=== PATIENT | female | born 1945 | race American Indian/Alaskan Native ===

== ENCOUNTER 2017-03-21 13:35 | Inpatient (IN) | payer MEDICARE ==
[2017-03-21] MEDS ORDERED: PROVENTIL IH ONE (15:21)
[2017-03-21] MEDS ORDERED: MAGNESIUM SULFATE 2GM/50ML 2 GM/50 ML BAG IV ONE (15:21)
[2017-03-21] MEDS ORDERED: ATROVENT IH ONE (15:22)
--- NOTE | 2017-03-21 15:25 | Emergency Department Report ---
Chief Complaint: Adult Asthma Stated Complaint: COUGHING Time Seen by Provider: 03/21/17 15:21 - HPI History of Present Illness: pt c/o wheezing for 1 week. PT states she was seen at PCP office last week and today but no improvement with medications. - ROS Review of Systems: + wheezing + cough + congestion - Exam Vital Signs: Vital Signs 03/21/17 15:13 Temperature 98.1 F Pulse Rate 78 Respiratory 24 Rate Blood Pressure 147/91 O2 Sat by Pulse 100 Oximetry Physical Exam: PT looks well, non toxic mild tachypnea noted but no acute distress pt with insp/ exp wheeze srikanth, ant and post MSE screening note: Focused history and physical exam performed. Due to findings the following was ordered: labs, xr, neb, meds ED Disposition for MSE Condition: Stable
[2017-03-21 15:55] LABS: Basophils % (Auto) 0.8 % (0.0-1.8); Eosinophils % (Auto) 1.2 % (0.0-4.3); Hematocrit 39.9 % (30.3-42.9); Hemoglobin 12.8 gm/dl (10.1-14.3); Mean Corpuscular HGB Conc 32 % (30-34); Mean Corpuscular Hemoglobin 28 pg (28-32); Mean Corpuscular Volume 88 fl (79-97); Platelet Count 267 K/mm3 (140-440); Red Blood Count 4.55 M/mm3 (3.65-5.03); Red Cell Distribution Width 12.8 % (13.2-15.2); White Blood Count 6.5 K/mm3 (4.5-11.0)
[2017-03-21 16:01] LABS: Alanine Aminotransferase 22 units/L (7-56); Albumin 3.9 g/dL (3.9-5); Alkaline Phosphatase 115 units/L (35-129); Anion Gap 17 mmol/L; Bilirubin,Total 0.3 mg/dL (0.1-1.2); Blood Urea Nitrogen 14 mg/dL (7-17); Calcium 9.6 mg/dL (8.4-10.2); Carbon Dioxide 26 mmol/L (22-30); Chloride 96.9 mmol/L (98-107); Glucose 104 mg/dL (65-100); Potassium 4.2 mmol/L (3.6-5.0); Sodium 136 mmol/L (137-145)
[2017-03-21 16:07] LABS: Total Protein 7.9 g/dL (6.3-8.2)
--- NOTE | 2017-03-21 16:37 | XRay Report ---
ROUTINE CHEST, TWO VIEWS: Asthma, SOB. PA and lateral views demonstrate the heart and mediastinal contour to be of normal size and shape. The lungs are clear and fully expanded and the soft tissues and bony structures are normal. IMPRESSION: Normal study.
[2017-03-21] MEDS ORDERED: TESSALON PERLES PO ONE (17:05)
--- NOTE | 2017-03-21 17:06 | Emergency Department Report ---
ED Shortness of Breath HPI - General Chief Complaint: Adult Asthma Stated Complaint: COUGHING Time Seen by Provider: 03/21/17 16:50 Source: patient Mode of arrival: Ambulatory Limitations: No Limitations - History of Present Illness Initial Comments: 71-year-old female with a past medical history of asthma, hypertension, and elevated cholesterol presents to the hospital complains of asthma exacerbation. Patient's experience shortness of breath and wheezing episodes 1 week. Positive cough productive of thick clear sputum. She complains of chest pain with coughing only that is rated 2/10 in intensity. No complaints of fever, calf tenderness, edema, fever. Patient was seen by her PMD this AMand was sent to the ED for treatment - Related Data Home Medications Medication Instructions Recorded Confirmed Last Taken Albuterol Sulfate [Ventolin HFA] 2 puff IH Q4H PRN 05/31/14 05/31/14 05/30/14 Aspirin EC [Halfprin EC] 81 mg PO QDAY 05/31/14 05/31/14 05/30/14 Baclofen [Lioresal] 10 mg PO BID 05/31/14 05/31/14 05/30/14 Estrogens, Conjugated [Premarin] 0.625 mg PO QDAY 05/31/14 05/31/14 05/30/14 Loratadine [Claritin] 10 mg PO DAILY 05/31/14 05/31/14 05/30/14 Montelukast [Singulair] 10 mg PO QPM 05/31/14 05/31/14 05/30/14 Polyethylene Glycol 3350 [Gavilax] 8.5 gm PO DAILY 05/31/14 05/31/14 05/30/14 Simvastatin 20 mg PO QDAY 05/31/14 05/31/14 05/30/14 Triamter/Hctz 37.5-25 mg 1 tab PO QDAY 05/31/14 05/31/14 05/30/14 [Maxzide-25] Previous Rx's Medication Instructions Recorded Last Taken Type Doxycycline [Vibramycin CAP] 100 mg PO Q12HR #20 capsule 08/15/15 Unknown Rx Cyclobenzaprine [Flexeril] 10 mg PO TID PRN #20 tablet 11/08/15 Unknown Rx Ibuprofen [Motrin 800 MG tab] 800 mg PO Q8HR PRN #20 tablet 11/08/15 Unknown Rx Meloxicam [Mobic] 7.5 mg PO QDAY #30 tablet 01/13/16 Unknown Rx ALBUTEROL Inhaler [ProAir HFA 2 puff IH QID PRN #1 inhalation 01/18/16 Unknown Rx Inhaler] Benzonatate [Tessalon Perles] 100 mg PO Q8HR PRN #20 capsule 01/18/16 Unknown Rx predniSONE [Deltasone] 20 mg PO BID #10 tablet 01/18/16 Unknown Rx Sulfamethoxazole/Trimethoprim 1 each PO BID #14 tablet 07/31/16 Unknown Rx [Bactrim DS TAB] Allergies Allergy/AdvReac Type Severity Reaction Status Date / Time acetaminophen [From Vicodin] Allergy Itching Verified 01/18/16 08:23 hydrocodone bitartrate Allergy Itching Verified 01/18/16 08:23 [From Vicodin] ED Review of Systems ROS: Stated complaint: COUGHING Other details as noted in HPI Comment: All other systems reviewed and negative Other: Constitutional: No fevers chills Eyes: No eye pain visual changes ENT: No ear pain or throat pain Neck: Denies pain Respiratory: As per HPI Cardiovascular: As per HPI GI: Denies abdominal pain, nausea, vomiting, diarrhea : Denies dysuria Musculoskeletal: Denies back pain Skin: Denies rash, lesions, erythema Neurologic: Denies headache, numbness, weakness Psychiatric: Denies suicidal ideation, hallucinations ED Past Medical Hx - Past Medical History Previous Medical History?: Yes Hx Hypertension: Yes Hx Asthma: Yes Additional medical history: HIGH CHOLESTEROL. CHRONIC BACK PAIN. GLAUCOMA - Surgical History Past Surgical History?: Yes Additional Surgical History: back, L knee surgery, hysterectomy - Social History Smoking Status: Never Smoker Substance Use Type: None - Medications Home Medications: Home Medications Medication Instructions Recorded Confirmed Last Taken Type Albuterol Sulfate [Ventolin HFA] 2 puff IH Q4H PRN 05/31/14 05/31/14 05/30/14 History Aspirin EC [Halfprin EC] 81 mg PO QDAY 05/31/14 05/31/14 05/30/14 History Baclofen [Lioresal] 10 mg PO BID 05/31/14 05/31/14 05/30/14 History Estrogens, Conjugated [Premarin] 0.625 mg PO QDAY 05/31/14 05/31/1414 History Loratadine [Claritin] 10 mg PO DAILY 05/31/14 05/31/14 05/30/14 History Montelukast [Singulair] 10 mg PO QPM 05/31/14 05/31/14 05/30/14 History Polyethylene Glycol 3350 [Gavilax] 8.5 gm PO DAILY 05/31/14 05/31/14 05/30/14 History Simvastatin 20 mg PO QDAY 05/31/14 05/31/14 05/30/14 History Triamter/Hctz 37.5-25 mg 1 tab PO QDAY 05/31/14 05/31/14 05/30/14 History [Maxzide-25] Doxycycline [Vibramycin CAP] 100 mg PO Q12HR #20 capsule 08/15/15 Unknown Rx Cyclobenzaprine [Flexeril] 10 mg PO TID PRN #20 tablet 11/08/15 Unknown Rx Ibuprofen [Motrin 800 MG tab] 800 mg PO Q8HR PRN #20 tablet 11/08/15 Unknown Rx Meloxicam [Mobic] 7.5 mg PO QDAY #30 tablet 01/13/16 Unknown Rx ALBUTEROL Inhaler [ProAir HFA 2 puff IH QID PRN #1 inhalation 01/18/16 Unknown Rx Inhaler] Benzonatate [Tessalon Perles] 100 mg PO Q8HR PRN #20 capsule 01/18/16 Unknown Rx predniSONE [Deltasone] 20 mg PO BID #10 tablet 01/18/16 Unknown Rx Sulfamethoxazole/Trimethoprim 1 each PO BID #14 tablet 07/31/16 Unknown Rx [Bactrim DS TAB] ED Physical Exam - General Limitations: No Limitations - Other Other exam information: General: No limitations, patient is alert in no acute distress Head exam: Atraumatic, normocephalic Eyes exam: Normal appearance, ENT: Moist mucous membrane, normal oropharynx Neck exam: Normal inspection, full range of motion, no meningismus nontender Respiratory exam: Diminished breath sounds bilaterally with end expiratory wheeze, mild tachypnea Cardiovascular: Normal rate and rhythm, normal heart sounds Abdomen: Soft, nondistended, and nontender, with normal bowel sounds, no rebound, or guarding Extremity: Full range of motion normal inspection no deformity Back: Normal Inspection, full range of motion, no tenderness Neurologic: Alert, oriented x3, cranial nerves intact, no motor or sensory deficit Psychiatric: normal affect, normal mood Skin: Warm, dry, intact ED Course Vital Signs 03/21/17 15:13 Temperature 98.1 F Pulse Rate 78 Respiratory 24 Rate Blood Pressure 147/91 O2 Sat by Pulse 100 Oximetry - Reevaluation(s) Reevaluation #1: 03/21/17 17:09 Patient received magnesium, Solu-Medrol, albuterol, and Atrovent in the ED with improvement ED Medical Decision Making - Lab Data Result diagrams: 03/21/17 15:25 03/21/17 15:25 Lab Results 03/21/17 03/21/17 Range/Units 15:25 15:25 WBC 6.5 (4.5-11.0) K/mm3 RBC 4.55 (3.65-5.03) M/mm3 Hgb 12.8 (10.1-14.3) gm/dl Hct 39.9 (30.3-42.9) % MCV 88 (79-97) fl MCH 28 (28-32) pg MCHC 32 (30-34) % RDW 12.8 L (13.2-15.2) % Plt Count 267 (140-440) K/mm3 Lymph % (Auto) 34.6 (13.4-35.0) % [place] % (Auto) 8.5 H (0.0-7.3) % Eos % (Auto) 1.2 (0.0-4.3) % Baso % (Auto) 0.8 (0.0-1.8) % Lymph # 2.2 (1.2-5.4) K/mm3 [place] # 0.6 (0.0-0.8) K/mm3 Eos # 0.1 (0.0-0.4) K/mm3 Baso # 0.1 (0.0-0.1) K/mm3 Seg Neutrophils % 54.9 (40.0-70.0) % Seg Neutrophils # 3.6 (1.8-7.7) K/mm3 Sodium 136 L (137-145) mmol/L Potassium 4.2 (3.6-5.0) mmol/L Chloride 96.9 L (98-107) mmol/L Carbon Dioxide 26 (22-30) mmol/L Anion Gap 17 mmol/L BUN 14 (7-17) mg/dL Creatinine 0.7 (0.7-1.2) mg/dL Estimated GFR > 60 ml/min BUN/Creatinine Ratio 20.00 % Glucose 104 H (65-100) mg/dL Calcium 9.6 (8.4-10.2) mg/dL Total Bilirubin 0.3 (0.1-1.2) mg/dL AST 29 (5-40) units/L ALT 22 (7-56) units/L Alkaline Phosphatase 115 (35-129) units/L Total Protein 7.9 (6.3-8.2) g/dL Albumin 3.9 (3.9-5) g/dL Albumin/Globulin Ratio 1.0 % - Radiology Data Radiology results: report reviewed (chest x-ray: No acute finding) - Medical Decision Making Patient is improving with ED treatment. Plan to admit to the hospital due to persistent symptoms for further achievement of acute asthma exacerbation. No infiltrate identified on chest x-ray. Patient also without fever or leukocytosis - Differential Diagnosis asthma, bronchitis, pneumonia, CHF Critical Care Time: No Critical care attestation.: If time is entered above; I have spent that time in minutes in the direct care of this critically ill patient, excluding procedure time. ED Disposition Clinical Impression: Acute asthma exacerbation Disposition: OP ADMITTED IP TO THIS HOSP Is pt being admited?: Yes Condition: Stable Time of Disposition: 17:06 (Dr Santana/hosp)
--- NOTE | 2017-03-21 17:16 | Admit Criteria Form ---
Admission Criteria Documentation: ASTHMA Clinical Indications for Admission to Inpatient Care (Place 'X' for any and all applicable criteria): Admission is indicated for ANY ONE of the following (1)(2)(3)(4)(5): [ ]I. Absent or markedly diminished breath sounds (silent chest) [ ]II. Oxygen saturation < 92% [ ]III. PaCO2 = / > 42 mm Hg (5.6 kPa) [ ]IV. Peak expiratory flow rate < 40% of predicted or personal best after treatment. [ ]V. Peak expiratory flow rate < 33% of predicted or personal before after treatment [ ]. Change in mental status [ ]VII. Ventilatory support required [ ]VIII. PaO2 < 60 mm Hg (8.0 kPa) [ ]IX. Cyanosis [ ]X. Cardiac dysrhythmia (e.g., bradycardia) [ ]XI. Hemodynamic instability [ ]XII. Radiographic evidence of complication requiring inpatient treatment (e.g., pneumonia, pneumothorax) [X]XIII. Inpatient admission required rather than observation care (also use Asthma: Observation Care guideline as appropriate) because of ANY ONE of the following: [X]a) Respiratory finding that is severe or persistent (eg, dyspnea, tachypnea, accessory muscle use) [ ]b) Airflow measurements less than 60% of predicted or personal best that persist (e.g., over 24 hours) or worsen despite treatments [ ]c) Supplemental oxygen or respiratory treatments for over 24 hours that are performable only in acute inpatient setting [ ]d) Other condition, treatment or monitoring requiring inpatient admission. Extended stay beyond goal length of stay may be needed for (26)(27)(28): [ ]a) Severe respiratory failure (23) (29) (30) [ ]b) Secondary causes and complications (25) [ ]c) Status asthmaticus [ ]d) Chronic obstructive asthma [ ]e) Older patients (29) [ ]f) Slow resolution [ ]g) Clinically significant exacerbation of comorbidities (eg, anastasia. heart failure, atrial fibrillation) The original [employer] content created by [employer] has been revised. The portions of the content which have been revised are identified through the use of italic text or in bold, and [employer] has neither reviewed nor approved the modified material. All other unmodified content is copyright [employer] Please see references footnoted in the original [facility] edition 2016 Admission Criteria Met: Yes
--- NOTE | 2017-03-21 17:29 | History and Physical Report ---
History of Present Illness Chief complaint: I keep coughing, and im short of breath History of present illness: 71 YO Female with HTN, Asthma, HLD, Chronic Lumbar Pain presents to ED for evaluation. Pt states that she has experienced shortness of breath, and nonproductive cough for the past week with worsening symptoms over the past 24 hours. Pt states that her nebulizers are not helping her. Pt denies fever, chills, CP, Palpitations, NVD, Syncope, Prolonged immobility/travel, Individual/ Family history of DVT/PE, productive cough, syncope, leg swelling, calf pain, or recent ill contacts. Past History Past Medical History: other (Asthma,HTN) Past Surgical History: hysterectomy, total knee replacement, Other (Back) Social history: . denies: smoking, alcohol abuse, prescription drug abuse Family history: diabetes, hypertension Medications and Allergies Allergies Allergy/AdvReac Type Severity Reaction Status Date / Time acetaminophen [From Vicodin] Allergy Itching Verified 01/18/16 08:23 hydrocodone bitartrate Allergy Itching Verified 01/18/16 08:23 [From Vicodin] Home Medications Medication Instructions Recorded Confirmed Last Taken Type Albuterol Sulfate [Ventolin HFA] 2 puff IH Q4H PRN 05/31/14 05/31/14 05/30/14 History Aspirin EC [Halfprin EC] 81 mg PO QDAY 05/31/14 05/31/14 05/30/14 History Baclofen [Lioresal] 10 mg PO BID 05/31/14 05/31/14 05/30/14 History Estrogens, Conjugated [Premarin] 0.625 mg PO QDAY 05/31/14 05/31/14 05/30/14 History Loratadine [Claritin] 10 mg PO DAILY 05/31/14 05/31/14 05/30/14 History Montelukast [Singulair] 10 mg PO QPM 05/31/14 05/31/14 05/30/14 History Polyethylene Glycol 3350 [Gavilax] 8.5 gm PO DAILY 05/31/14 05/31/14 05/30/14 History Simvastatin 20 mg PO QDAY 05/31/14 05/31/14 05/30/14 History Triamter/Hctz 37.5-25 mg 1 tab PO QDAY 05/31/14 05/31/14 05/30/14 History [Maxzide-25] Doxycycline [Vibramycin CAP] 100 mg PO Q12HR #20 capsule 08/15/15 Unknown Rx Cyclobenzaprine [Flexeril] 10 mg PO TID PRN #20 tablet 11/08/15 Unknown Rx Ibuprofen [Motrin 800 MG tab] 800 mg PO Q8HR PRN #20 tablet 11/08/15 Unknown Rx Meloxicam [Mobic] 7.5 mg PO QDAY #30 tablet 01/13/16 Unknown Rx ALBUTEROL Inhaler [ProAir HFA 2 puff IH QID PRN #1 inhalation 01/18/16 Unknown Rx Inhaler] Benzonatate [Tessalon Perles] 100 mg PO Q8HR PRN #20 capsule 01/18/16 Unknown Rx predniSONE [Deltasone] 20 mg PO BID #10 tablet 01/18/16 Unknown Rx Sulfamethoxazole/Trimethoprim 1 each PO BID #14 tablet 07/31/16 Unknown Rx [Bactrim DS TAB] Review of Systems All systems: negative Respiratory: cough, shortness of breath Exam - Constitutional Vitals: Temp Pulse Resp BP Pulse Ox 98.1 F 78 24 147/91 100 03/21/17 15:13 03/21/17 15:13 03/21/17 15:13 03/21/17 15:13 03/21/17 15:13 General appearance: Present: mild distress - EENT Eyes: Present: PERRL ENT: hearing intact, clear oral mucosa - Neck Neck: Present: supple, normal ROM - Respiratory Respiratory effort: normal Respiratory: bilateral: diminished, wheezing - Cardiovascular Heart Sounds: Present: S1 & S2. Absent: rub, click - Extremities Extremities: pulses symmetrical, No edema Peripheral Pulses: within normal limits - Abdominal General gastrointestinal: Present: soft, non-tender, non-distended, normal bowel sounds Female genitourinary: Present: normal - Integumentary Integumentary: Present: clear, warm, dry - Musculoskeletal Musculoskeletal: gait normal, strength equal bilaterally - Psychiatric Psychiatric: appropriate mood/affect, intact judgment & insight - Neurologic Neurologic: CNII-XII intact, moves all extremities Results - Labs CBC & Chem 7: 03/21/17 15:25 03/21/17 15:25 Labs: Abnormal lab results 04/26/17 04/26/17 Range/Units 15:25 15:25 RDW 12.8 L (13.2-15.2) % [place] % (Auto) 8.5 H (0.0-7.3) % Sodium 136 L (137-145) mmol/L Chloride 96.9 L (98-107) mmol/L Glucose 104 H (65-100) mg/dL Assessment and Plan - Patient Problems (1) Acute respiratory failure Current Visit: Yes Status: Acute Qualifiers: Respiratory failure complication: R Plan to address problem: Supplemental oxygen, nebs, aspiration precautions, incentive spirometry, supportive care. (2) Acute asthma exacerbation Current Visit: Yes Status: Acute Qualifiers: Asthma severity: A Plan to address problem: Steroids, nebs, aspiration precautions, supplemental oxygen, supportive care, IV abx, magnesium sulfate (3) Accelerated hypertension Current Visit: Yes Status: Acute Plan to address problem: Monitor BP q shift, (4) Obesity (BMI 30.0-34.9) Current Visit: Yes Status: Acute Plan to address problem: Pt counseled regarding incrased physical activity, and balanced diet (5) HLD (hyperlipidemia) Current Visit: Yes Status: Acute Qualifiers: Hyperlipidemia type: H Plan to address problem: Continue current therapy (6) DVT prophylaxis Current Visit: Yes Status: Acute
[2017-03-21] MEDS ORDERED: TYLENOL PO PRN (17:30)
[2017-03-21] MEDS ORDERED: DULCOLAX PR PRN (17:30)
[2017-03-21] MEDS ORDERED: DUONEB 0.5 MG-3 MG/3 ML SOLN IH PRN (17:30)
[2017-03-21] MEDS ORDERED: MILK OF MAGNESIA PO PRN (17:30)
[2017-03-21] MEDS ORDERED: ZOFRAN IV PRN (17:30)
[2017-03-21] MEDS ORDERED: PROVENTIL IH PRN (18:12)
[2017-03-21] MEDS ORDERED: ZITHROMAX 500 MG in NACL 0.9% 250ML 250 ML IV SCH (19:30)
[2017-03-21] MEDS: ZITHROMAX 500 MG in NACL 0.9% 250ML 250 ML IV SCH (22:30)
--- NOTE | 2017-03-22 09:56 | Progress Note ---
Hospitalist Physical - Constitutional Vitals: Temp Pulse Resp BP Pulse Ox 98.8 F 99 H 20 125/62 96 03/22/17 09:06 03/22/17 09:06 03/22/17 09:06 03/22/17 09:06 03/22/17 07:53 General appearance: Present: mild distress Results - Labs CBC & Chem 7: 03/21/17 15:25 03/21/17 15:25 Labs: Laboratory Last Values WBC 6.5 K/mm3 (4.5-11.0) 03/21/17 15:25 RBC 4.55 M/mm3 (3.65-5.03) 03/21/17 15:25 Hgb 12.8 gm/dl (10.1-14.3) 03/21/17 15:25 Hct 39.9 % (30.3-42.9) 03/21/17 15:25 MCV 88 fl (79-97) 03/21/17 15:25 MCH 28 pg (28-32) 03/21/17 15:25 MCHC 32 % (30-34) 03/21/17 15:25 RDW 12.8 % (13.2-15.2) L 03/21/17 15:25 Plt Count 267 K/mm3 (140-440) 03/21/17 15:25 Lymph % (Auto) 34.6 % (13.4-35.0) 03/21/17 15:25 [place] % (Auto) 8.5 % (0.0-7.3) H 03/21/17 15:25 Eos % (Auto) 1.2 % (0.0-4.3) 03/21/17 15:25 Baso % (Auto) 0.8 % (0.0-1.8) 03/21/17 15:25 Lymph # 2.2 K/mm3 (1.2-5.4) 03/21/17 15:25 [place] # 0.6 K/mm3 (0.0-0.8) 03/21/17 15:25 Eos # 0.1 K/mm3 (0.0-0.4) 03/21/17 15:25 Baso # 0.1 K/mm3 (0.0-0.1) 03/21/17 15:25 Seg Neutrophils % 54.9 % (40.0-70.0) 03/21/17 15:25 Seg Neutrophils # 3.6 K/mm3 (1.8-7.7) 03/21/17 15:25 Sodium 136 mmol/L (137-145) L 03/21/17 15:25 Potassium 4.2 mmol/L (3.6-5.0) 03/21/17 15:25 Chloride 96.9 mmol/L (98-107) L 03/21/17 15:25 Carbon Dioxide 26 mmol/L (22-30) 03/21/17 15:25 Anion Gap 17 mmol/L 03/21/17 15:25 BUN 14 mg/dL (7-17) 03/21/17 15:25 Creatinine 0.7 mg/dL (0.7-1.2) 03/21/17 15:25 Estimated GFR > 60 ml/min 03/21/17 15:25 BUN/Creatinine Ratio 20.00 % 03/21/17 15:25 Glucose 104 mg/dL (65-100) H 03/21/17 15:25 Calcium 9.6 mg/dL (8.4-10.2) 03/21/17 15:25 Total Bilirubin 0.3 mg/dL (0.1-1.2) 03/21/17 15:25 AST 29 units/L (5-40) 03/21/17 15:25 ALT 22 units/L (7-56) 03/21/17 15:25 Alkaline Phosphatase 115 units/L (35-129) 03/21/17 15:25 Total Protein 7.9 g/dL (6.3-8.2) 03/21/17 15:25 Albumin 3.9 g/dL (3.9-5) 03/21/17 15:25 Albumin/Globulin Ratio 1.0 % 03/21/17 15:25
[2017-03-22] MEDS ORDERED: NON-FORMULARY (Famotidine [Pepcid] 40 MG) PO SCH (17:45)
[2017-03-22] MEDS ORDERED: SINGULAIR PO SCH (18:00)
[2017-03-22] MEDS: PEPCID PO SCH (19:34)
[2017-03-22] MEDS: MAXZIDE-25 PO SCH (19:34)
[2017-03-22] MEDS: ZOCOR PO SCH (19:35)
[2017-03-22] MEDS: TESSALON PERLES PO SCH (19:35)
[2017-03-22] MEDS: HALFPRIN EC PO SCH (19:35)
[2017-03-22] MEDS: ZITHROMAX 500 MG in NACL 0.9% 250ML 250 ML IV SCH (22:06)
--- NOTE | 2017-03-23 08:22 | Discharge Summary ---
Providers - Providers Date of Admission: 03/21/17 17:31 Date of discharge: 03/23/17 Attending physician: KESHAWN DUNCAN Primary care physician: KARTHIK PAGAN MD Hospitalization Condition: Good Disposition: DISCHARGED TO HOME OR SELFCARE - Discharge Diagnoses (1) Accelerated hypertension Status: Acute (2) Acute asthma exacerbation Status: Acute Qualifiers: Asthma severity: A (3) Acute respiratory failure Status: Acute Qualifiers: Respiratory failure complication: R (4) HLD (hyperlipidemia) Status: Acute Qualifiers: Hyperlipidemia type: H (5) Obesity (BMI 30.0-34.9) Status: Acute Core Measure Documentation - Palliative Care Palliative Care/ Comfort Measures: Not Applicable - Core Measures Any of the following diagnoses?: none Exam - Constitutional Vitals: Temp Pulse Resp BP Pulse Ox 98.1 F 73 20 140/72 96 03/22/17 20:15 03/22/17 22:00 03/22/17 20:15 03/22/17 20:15 03/22/17 20:15 Plan Activity: advance as tolerated Diet: low fat, low cholesterol, low salt Additional Instructions: 1. Follow up with primary care physician in one week Follow up with: PRIMARY CAREMD [Primary Care Provider] - 7 Days Prescriptions: Benzonatate [Tessalon Perles] 100 mg PO TID PRN #20 capsule PRN Reason: Cough
[2017-03-23] MEDS: TESSALON PERLES PO SCH ×2 (08:23→14:06)
[2017-03-23 09:48] VITALS: BP 125/53
[2017-03-23] MEDS ORDERED: LOVENOX SUB-Q SCH (10:00)
[2017-03-23] MEDS: ZOCOR PO SCH (10:43)
[2017-03-23] MEDS: MAXZIDE-25 PO SCH (10:43)
[2017-03-23] MEDS: HALFPRIN EC PO SCH (10:44)
[2017-03-23] MEDS: PEPCID PO SCH (10:44)
== END 2017-03-23 12:15 | disposition home or self-care (01) | DRG 189 ==
LOC: ED 13:35 → CC2 17:31
PROVIDERS: ADMIT Internal Medicine; ATTEND Internal Medicine
DX: J96.00 Acute respiratory failure, unspecified whether with hypoxia or hypercapnia (principal); J45.901 Unspecified asthma with (acute) exacerbation; I10 Essential (primary) hypertension; E66.9 Obesity, unspecified; G89.29 Other chronic pain; M54.9 Dorsalgia, unspecified; H40.9 Unspecified glaucoma; Z96.659 Presence of unspecified artificial knee joint; E78.5 Hyperlipidemia, unspecified; Z88.8 Allergy status to other drugs, medicaments and biological substances; Z90.710 Acquired absence of both cervix and uterus; Z83.3 Family history of diabetes mellitus; Z82.49 Family history of ischemic heart disease and other diseases of the circulatory system; Z68.30 Body mass index [BMI] 30.0-30.9, adult
CPT/HCPCS: 36415; 71020; 80053; 85025; 94640; 96365; 96375; J0456; J1650; J2920; J2930; J3475; J7050

== ENCOUNTER 2018-01-18 11:52 | Emergency (ER) | payer MEDICARE ==
[2018-01-18 12:19] VITALS: BP 144/73
[2018-01-18] MEDS ORDERED: ULTRAM PO ONE (13:17)
--- NOTE | 2018-01-18 13:17 | Emergency Department Report ---
Blank Doc - Documentation Documentation: Patient is a 72-year-old -[place] female who's complaining of left- sided chest discomfort since yesterday. Patient states it hurts when she moves. Patient states last week she was moving a lot of furniture slighted in her apartment rearranging things. Other than that she can't remember lifting anything heavy that we'll call strain. Patient denies any cough congestion sore throat fevers chills body aches or wheezing. Patient does have a history of asthma but states that she has not been symptomatic at this time. EKG will be performed as well as a chest x-ray 1 troponin. Patient most likely is having muscular skeletal chest pain. Patient does have reproducible pain in the left upper chest.
--- NOTE | 2018-01-18 14:24 | Emergency Department Report ---
HPI - General Chief Complaint: Chest Pain Time Seen by Provider: 01/18/18 13:15 - HPI HPI: This is a 72-year-old female with a history of blood pressure showed it medication as well as asthma who presents complaining of chest tightness for the past couple of days. Patient states she is having some pain on her left sided chest region. Patient states pains since like sore achy type feeling. Patient states she does sleep on the left side and noticed that she gets pain was times morning. She denies trauma or lifting. She denies shortness of breath, dizziness, lightheadedness or any other p ED Past Medical Hx - Past Medical History Hx Hypertension: Yes Hx GERD: Yes Hx Asthma: Yes Hx HIV: No Additional medical history: HIGH CHOLESTEROL. CHRONIC BACK PAIN. GLAUCOMA - Surgical History Additional Surgical History: back, L knee surgery, hysterectomy - Social History Smoking Status: Never Smoker Substance Use Type: None - Medications Home Medications: Home Medications Medication Instructions Recorded Confirmed Last Taken Type Aspirin EC [Aspirin Enteric Coated 81 mg PO QDAY 05/31/14 03/22/17 03/21/17 09: 00 History TAB] 81 mg Montelukast [Singulair] 10 mg PO QPM 05/31/14 03/22/17 03/21/17 21:00 History 10 mg Simvastatin 20 mg PO QDAY 05/31/14 03/22/17 03/21/17 21:00 History 20 mg Triamter/Hctz 37.5-25 mg 1 tab PO QDAY 05/31/14 03/22/17 03/21/17 09:00 History [Maxzide-25] 1 tab Famotidine [Pepcid] 40 mg PO DAILY 03/22/17 03/22/17 03/21/17 09:00 History 40 mg Azithromycin [Zithromax] 250 mg PO DAILY #5 tablet 03/23/17 Unknown Rx Benzonatate [Tessalon Perles] 100 mg PO TID PRN #20 capsule 03/23/17 Unknown Rx Prednisone [predniSONE 5 mg (6-Day 5 mg PO .TAPER #1 tab.ds.pk 03/23/17 Unknown Rx Pack, 21 Tabs)] Ibuprofen [Motrin] 600 mg PO Q8H PRN #15 tablet 01/18/18 Unknown Rx methOCARBAMOL [Robaxin TAB] 500 mg PO Q6H PRN #12 tablet 01/18/18 Unknown Rx ED Review of Systems ROS: Stated complaint: SOB/CHEST TIGHTNESS Other details as noted in HPI Constitutional: denies: chills, fever Eyes: denies: eye pain, eye discharge, vision change ENT: denies: ear pain, throat pain Respiratory: denies: cough, shortness of breath, wheezing Cardiovascular: denies: chest pain, palpitations Endocrine: no symptoms reported Gastrointestinal: denies: abdominal pain, nausea, diarrhea Genitourinary: denies: urgency, dysuria, discharge Musculoskeletal: denies: back pain, joint swelling, arthralgia Skin: denies: rash, lesions Neurological: denies: headache, weakness, paresthesias Psychiatric: denies: anxiety, depression Hematological/Lymphatic: denies: easy bleeding, easy bruising Physical Exam - Physical Exam Vital Signs: Vital Signs 01/18/18 12:12 Temperature 97.5 F L Pulse Rate 77 Respiratory 18 Rate Blood Pressure 144/73 O2 Sat by Pulse 98 Oximetry Physical Exam: GENERAL: Alert and oriented x3, no apparent distress, Normal Gait, atraumatic. NECK: Supple. Non edematous, No lymphadenopathy or thyromegaly. No C-spine tenderness LUNGS: Symetrical with respiration, No wheezing, no rales or crackles, CTAB. HEART: S1, S2 present, regular rate and rhythm without murmur, no rubs, no gallops. Mild tenderness to palpation on left chest or upper arm region BACK: Full range of motion, no spinal tenderness, nontender to palpation. EXTREMITIES/MUSCULOSKELETAL: No cyanosis, clubbing, rash, lesions or edema. Full ROM bilaterally. UE/LE Pulses 2+ bilaterally. LE and UE 5+ strength bilaterally, straight leg raise negative bilaterally NEUROLOGIC: The patient is cooperative with no focal neurologic deficits. SKIN: Warm and dry, No lesions, No ulceration or induration present. ED Course Vital Signs 01/18/18 12:12 Temperature 97.5 F L Pulse Rate 77 Respiratory 18 Rate Blood Pressure 144/73 O2 Sat by Pulse 98 Oximetry ED Medical Decision Making - Radiology Data Radiology results: report reviewed, image reviewed Ordering Physician: YOGESH LEY MD Date of Service: 01/18/18 Procedure(s): XR chest routine 2V Accession Number(s): [id number] cc: YOGESH LEY MD Fluoro Time In Minutes: CHEST 2 VIEWS INDICATION: Cough. COMPARISON: 03/21/2017. FINDINGS: PA and lateral chest radiographs demonstrate normal cardiomediastinal silhouette. Clear lungs. Mild bony degenerative changes. CONCLUSION: No acute disease in the chest. Thank you for the opportunity to participate in this patient's care. Transcribed By: RS Dictated By: JENNY MURPHY MD Electronically Authenticated By: JENNY MURPHY MD Signed Date/Time: 01/18/18 1421 - Medical Decision Making 72-year-old female presents with muscle spasms of the upper arm chest region ED course: Patient received troponin, chest x-ray ordered, EKG. All labs within normal limits I discussed this findings with the patient. I discussed with the patient if he has worsening symptoms or new onset of symptoms to return to ED immediately Vital signs are normal patient is in no acute distress Discussed with patient follow-up with primary care physician. Discussed the patient and take medications as prescribed. Patient has no neurological deficit. Patient is alert and oriented 3 and understands all instructions given. Discharge paperwork filled out and given to patient by Dr. Casper Mcduffie. Critical care attestation.: If time is entered above; I have spent that time in minutes in the direct care of this critically ill patient, excluding procedure time. ED Disposition Disposition: DC-01 TO HOME OR SELFCARE Condition: Stable Referrals: DAYANNA NIETO MD [Primary Care Provider] - 3-5 Days
== END 2018-01-18 14:47 | disposition home or self-care (01) ==
LOC: ED 11:52
DX: R07.89 Other chest pain (principal); I10 Essential (primary) hypertension; K21.9 Gastro-esophageal reflux disease without esophagitis; J45.909 Unspecified asthma, uncomplicated
CPT/HCPCS: 36415; 71046; 84484; 93005; 93010

== ENCOUNTER 2018-06-11 12:49 | Emergency (ER) | payer MEDICARE ==
[2018-06-11 17:17] LABS: Basophils % (Auto) 0.3 % (0.0-1.8); Eosinophils # (Auto) 0.1 K/mm3 (0.0-0.4); Eosinophils % (Auto) 1.7 % (0.0-4.3); Hematocrit 38.9 % (30.3-42.9); Hemoglobin 12.9 gm/dl (10.1-14.3); Lymphocytes # (Auto) 1.9 K/mm3 (1.2-5.4); Lymphocytes % (Auto) 30.8 % (13.4-35.0); Mean Corpuscular HGB Conc 33 % (30-34); Mean Corpuscular Hemoglobin 30 pg (28-32); Mean Corpuscular Volume 90 fl (79-97); Monocytes # (Auto) 0.6 K/mm3 (0.0-0.8); Monocytes % (Auto) 9.6 % (0.0-7.3); Platelet Count 226 K/mm3 (140-440); Red Blood Count 4.32 M/mm3 (3.65-5.03); Red Cell Distribution Width 13.1 % (13.2-15.2)
[2018-06-11 17:37] LABS: Alanine Aminotransferase 19 units/L (7-56); Albumin 3.9 g/dL (3.9-5); BUN/Creatinine Ratio 10; Blood Urea Nitrogen 9 mg/dL (7-17); Calcium 9.4 mg/dL (8.4-10.2); Hemolysis Index 11
[2018-06-11] MEDS ORDERED: K-DUR PO ONE ×2 (17:55→18:14)
--- NOTE | 2018-06-11 18:09 | Emergency Department Report ---
HPI - General Chief Complaint: Syncope Time Seen by Provider: 06/11/18 17:19 - HPI HPI: 72-year-old female presents to the emergency department after she had a syncopal episode on Sunday, 3 days ago. The patient deals with some chronic constipation and was recently placed on Amitiza by her PCP, Dr. Nieto. She says that she took this medication on Sunday and started feeling dizzy. She then went to the bathroom and splashed some water on her face and then woke up on the floor of the bathroom. Since that time she's been having some dizziness, neck pain and pain in the buttock. She has a past medical history of asthma, GERD, hypertension, hyperlipidemia. She otherwise has not taken anything for her symptoms prior to presentation. She denies any fever, vision change, chest pain, shortness of breath. There is a mild headache. ED Past Medical Hx - Past Medical History Hx Hypertension: Yes Hx GERD: Yes Hx Asthma: Yes Hx HIV: No Additional medical history: HIGH CHOLESTEROL. CHRONIC BACK PAIN. GLAUCOMA - Surgical History Additional Surgical History: back, L knee surgery, hysterectomy - Social History Smoking Status: Never Smoker Substance Use Type: None - Medications Home Medications: Home Medications Medication Instructions Recorded Confirmed Last Taken Type Aspirin EC [Aspirin Enteric Coated 81 mg PO QDAY 05/31/14 03/22/17 03/21/17 09: 00 History TAB] 81 mg Montelukast [Singulair] 10 mg PO QPM 05/31/14 03/22/17 03/21/17 21:00 History 10 mg Simvastatin 20 mg PO QDAY 05/31/14 03/22/17 03/21/17 21:00 History 20 mg Triamter/Hctz 37.5-25 mg 1 tab PO QDAY 05/31/14 03/22/17 03/21/17 09:00 History [Maxzide-25] 1 tab Famotidine [Pepcid] 40 mg PO DAILY 03/22/17 03/22/17 03/21/17 09:00 History 40 mg Azithromycin [Zithromax] 250 mg PO DAILY #5 tablet 03/23/17 Unknown Rx Benzonatate [Tessalon Perles] 100 mg PO TID PRN #20 capsule 03/23/17 Unknown Rx Prednisone [predniSONE 5 mg (6-Day 5 mg PO .TAPER #1 tab.ds.pk 03/23/17 Unknown Rx Pack, 21 Tabs)] Ibuprofen [Motrin] 600 mg PO Q8H PRN #15 tablet 01/18/18 Unknown Rx methOCARBAMOL [Robaxin TAB] 500 mg PO Q6H PRN #12 tablet 01/18/18 Unknown Rx ED Review of Systems ROS: Stated complaint: PAIN/FELL Other details as noted in HPI Comment: All other systems reviewed and negative Constitutional: denies: chills, fever Eyes: denies: eye pain, eye discharge, vision change ENT: denies: ear pain, throat pain Respiratory: denies: cough, shortness of breath, wheezing Cardiovascular: syncope. denies: chest pain, palpitations Gastrointestinal: denies: abdominal pain, nausea, diarrhea Genitourinary: denies: urgency, dysuria, discharge Musculoskeletal: arthralgia, myalgia. denies: back pain Skin: denies: rash, lesions Neurological: headache, other (dizziness). denies: numbness Physical Exam - Physical Exam Vital Signs: Vital Signs 06/11/18 06/11/18 06/11/18 13:14 16:25 16:30 Temperature 98.1 F Pulse Rate 84 Respiratory 18 16 18 Rate Blood Pressure 128/41 155/70 O2 Sat by Pulse 100 97 99 Oximetry 06/11/18 06/11/18 16:38 16:41 Temperature 97.9 F Pulse Rate Respiratory 17 Rate Blood Pressure O2 Sat by Pulse 96 Oximetry Physical Exam: GENERAL: The patient is well-developed well-nourished. HENT: Normocephalic. Atraumatic. Patient has moist mucous membranes. EYES: Extraocular motions are intact. Pupils equal reactive to light bilaterally. No nystagmus. NECK: Supple. Trachea is midline. CHEST/LUNGS: Clear to auscultation. There is no respiratory distress noted. HEART/CARDIOVASCULAR: Regular. There is no tachycardia. There is no murmur. ABDOMEN: Abdomen is soft, nontender. Patient has normal bowel sounds. There is no abdominal distention. SKIN: Skin is warm and dry. NEURO: The patient is awake, alert, and oriented. The patient is cooperative. The patient has no focal neurologic deficits. The patient has normal speech. Cranial nerves II through XII grossly intact. No pronator drift. No dysmetria. MUSCULOSKELETAL: There is no tenderness or deformity. There is no limitation range of motion. There is no evidence of acute injury. ED Course Vital Signs 06/11/18 06/11/18 06/11/18 13:14 16:25 16:30 Temperature 98.1 F Pulse Rate 84 Respiratory 18 16 18 Rate Blood Pressure 128/41 155/70 O2 Sat by Pulse 100 97 99 Oximetry 06/11/18 06/11/18 16:38 16:41 Temperature 97.9 F Pulse Rate Respiratory 17 Rate Blood Pressure O2 Sat by Pulse 96 Oximetry ED Medical Decision Making - Lab Data Result diagrams: 06/11/18 16:52 06/11/18 16:52 - EKG Data -: EKG Interpreted by Me EKG shows normal: sinus rhythm (ventricular trigeminy), axis, intervals ( prolonged QTc interval), QRS complexes (Q waves to the inferior leads), ST-T waves Rate: normal - EKG Data When compared to previous EKG there are: no significant change Interpretation: unchanged when compared t (01/19/18) - Radiology Data Radiology results: report reviewed, image reviewed interpreted by me: X-ray of the pelvis, sacrum and coccyx do not show any fracture dislocation and EKG process. PROCEDURE: CT HEAD/BRAIN WO CON TECHNIQUE: Computerized tomography of the head was performed without contrast material. HISTORY: headache COMPARISON: No prior studies are available for comparison. FINDINGS: There is no CT evidence of intracranial mass, hemorrhage, acute territorial infarction, or hydrocephalus. 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 Intracranial arteries are symmetric in density. No acute fracture is seen. Visualized paranasal sinuses and mastoids are aerated. IMPRESSION: No CT evidence of acute abnormality PROCEDURE: CT CERVICAL SPINE WO CON TECHNIQUE: Computerized tomography of the cervical spine was performed from the skull base to T1 without contrast material. HISTORY: neck pain, fall COMPARISON: No prior studies are available for comparison. 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 The vertebral body heights and alignment are maintained. There are significant degenerative disc changes at C5-6 and C6-7. No subluxation of the facet joints is seen. No acute fracture or subluxation is identified. Straightening of the usual cervical lordosis may be related to patient positioning or muscle spasm. IMPRESSION: No acute fracture or subluxation of the cervical spine. There is anterior subluxation of the left mandibular condyle, which could be chronic, however recommend correlation for any acute pain. Transcribed By: ANGELINE Dictated By: GAIL LEE M.D. Electronically Authenticated By: GAIL LEE M.D. Signed Date/Time: 06/11/182009 - Medical Decision Making Patient presented after she had a syncopal episode on Sunday, 3 days ago and has been having some dizziness and a mild headache since that time. She also complained of some body aches including around her tailbone and her neck. CT of the head without contrast did not show any bleed, shift, mass or any acute process. CT of the cervical spine also did not show any fracture, subluxation or any acute process. X-rays were done of the pelvis, sacrum and coccyx that also did not show any acute process. Labs were unremarkable and did not show any etiology of her symptoms. Vital signs stable throughout her ED course. She did not have any focal, motor or sensory deficits in her cranial nerves are intact. She was reevaluated multiple times of multiple hours and is feeling improved. At discharge she was ambulatory throughout the emergency department and appeared stable while doing so. She appears safe for discharge home at this time. She will follow-up with her primary care physician and will return to the ER with any worsening of her symptoms or any acute distress. - Differential Diagnosis vasovagal, orthostatic hypotension, dysrhythmia, TIA Critical Care Time: No Critical care attestation.: If time is entered above; I have spent that time in minutes in the direct care of this critically ill patient, excluding procedure time. ED Disposition Clinical Impression: Dizziness, Hypokalemia Syncope Qualifiers: Syncope type: unspecified Qualified Code(s): R55 - Syncope and collapse Disposition: - TO HOME OR SELFCARE Is pt being admited?: No Condition: Stable Instructions: Hypokalemia (ED), Syncope (ED), Acute Headache (ED), Dizziness ( ED) Additional Instructions: Please follow-up with your primary care physician in the next few days. Return to the emergency Department with any worsening of your symptoms or any acute distress. Referrals: OLMAN NIETO MD [Primary Care Provider] - [facility] Time of Disposition: 21:14
[2018-06-11 19:12] LABS: Bilirubin,Urine NEG (Negative); Blood,Urine SM (Negative); Color,Urine Yellow (Yellow); Urobilinogen,Urine < 2.0 mg/dL (<2.0)
[2018-06-11 19:35] LABS: Amphetamine Screen,Urine PRESUMPTIVE NEGATIVE; Benzodiazepines Screen,Urine PRESUMPTIVE NEGATIVE; Cannabinoid Screen,Urine PRESUMPTIVE NEGATIVE; Cocaine Screen,Urine PRESUMPTIVE NEGATIVE; Methadone Screen,Urine PRESUMPTIVE NEGATIVE; Opiate Screen,Urine PRESUMPTIVE NEGATIVE
--- NOTE | 2018-06-11 20:10 | Cat Scan Report ---
FINAL REPORT PROCEDURE: CT HEAD/BRAIN WO CON TECHNIQUE: Computerized tomography of the head was performed without contrast material. HISTORY: headache COMPARISON: No prior studies are available for comparison. FINDINGS: There is no CT evidence of intracranial mass, hemorrhage, acute territorial infarction, or hydrocephalus. 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 Intracranial arteries are symmetric in density. No acute fracture is seen. Visualized paranasal sinuses and mastoids are aerated. IMPRESSION: No CT evidence of acute abnormality
--- NOTE | 2018-06-11 20:14 | Cat Scan Report ---
FINAL REPORT PROCEDURE: CT CERVICAL SPINE WO CON TECHNIQUE: Computerized tomography of the cervical spine was performed from the skull base to T1 without contrast material. HISTORY: neck pain, fall COMPARISON: No prior studies are available for comparison. 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 The vertebral body heights and alignment are maintained. There are significant degenerative disc changes at C5-6 and C6-7. No subluxation of the facet joints is seen. No acute fracture or subluxation is identified. Straightening of the usual cervical lordosis may be related to patient positioning or muscle spasm. IMPRESSION: No acute fracture or subluxation of the cervical spine. There is anterior subluxation of the left mandibular condyle, which could be chronic, however recommend correlation for any acute pain.
[2018-06-11 20:56] VITALS: BP 133/81
--- NOTE | 2018-06-11 21:07 | XRay Report ---
FINAL REPORT PROCEDURE: XR PELVIS 1-2V TECHNIQUE: AP view of pelvis HISTORY: fall and pain COMPARISON: No prior studies are available for comparison. FINDINGS: No acute fracture or joint dislocation is seen. Sacroiliac joints are intact. There are degenerative changes of the lower lumbar spine IMPRESSION: No acute fracture is seen. If there are significant or persistent symptoms, consider follow-up radiograph
--- NOTE | 2018-06-11 21:08 | XRay Report ---
FINAL REPORT PROCEDURE: XR SPINE SACRUM/COCCYX 2+V TECHNIQUE: Sacrum and coccyx, AP and lateral views HISTORY: buttock pain, fall COMPARISON: No prior studies are available for comparison. FINDINGS: No acute fracture or focal osseous lesion is seen. Sacroiliac joints are unremarkable. There are lumbar spine degenerative disc changes IMPRESSION: No acute fracture is seen
== END 2018-06-11 21:24 | disposition home or self-care (01) ==
LOC: ED 12:49
PROC: 0B110Z4 Bypass Trachea to Cutaneous, Open Approach (ICD-10-PCS; principal; 2018-06-11)
DX: E87.6 Hypokalemia (principal); R55 Syncope and collapse; M54.2 Cervicalgia; R51 Headache; M79.1 Myalgia; K21.9 Gastro-esophageal reflux disease without esophagitis; J45.909 Unspecified asthma, uncomplicated; E78.00 Pure hypercholesterolemia, unspecified; G89.29 Other chronic pain; Z90.710 Acquired absence of both cervix and uterus; Z88.6 Allergy status to analgesic agent; Z88.8 Allergy status to other drugs, medicaments and biological substances
CPT/HCPCS: 36415; 70450; 72125; 72170; 72220; 80053; 80307; 81001; 84443; 85025; 93005; 93010; 99285; G0480; 80320

== ENCOUNTER 2018-06-27 08:26 | Outpatient (CLI) | payer MEDICARE ==
--- NOTE | 2018-06-27 09:41 | Mammography Report ---
BONE DEXA:06/27/18 08:26:00 CLINICAL: Postmenopausal. COMPARISON: 07/09/15 and 02/07/13 TECHNIQUE: Two site bone DEXA performed on an Hologic scanner. FINDINGS: The average BMD of the lumbar spine L2-L4 is 1.285g/cm squared with a T-score of +1.9 and a Z-score of +3.4. This compares to 1.264g/cm squared on the last exam and represents a +1.7% change from the previous study and a +1.0% change from baseline. The L1 vertebral body was excluded from the measurement as an outlier.d The average BMD of the left hip is 0.898g/cm squared with a T-score of -0.4 and a Z-score of +0.3. This compares to 0.964g/cm squared on the last exam and represents a -6.9% change from the previous study and a -10.3% change from baseline. IMPRESSION: 1. WHO classification: Normal with average fracture risk based on of spine and left hip measurements. 2. A modest improvement in spine BMD and a moderate decline in left hip BMD compared to previous exams. RECOMMENDATION: Clinical correlation and routine screening. DEFINITIONS: BMD = Bone Mineral Density T-score = BMD related to mean peak bone mass of young adult (mean expressed in Standard Deviation) Z-score = Age matched BMD expressed in SD World Health Organization (WHO) Diagnostic Criteria Normal T-score > -1 SD Osteopenia T-score between -1 and -2.4 SD Osteoporosis T-score -2.5 SD or below NOTE: BMD is not the only risk factor for fracture; also consider factors such as the patient's age, risk of falling, previous osteoporotic fracture, family history of osteoporotic fractures, current smoker, and low body weight. Z-scores are not calculated if >80 years of age.
== END 2018-06-27 08:27 | disposition home or self-care (01) ==
LOC: MAMMO 08:26
PROVIDERS: ATTEND Internal Medicine
DX: Z13.820 Encounter for screening for osteoporosis (principal); E78.5 Hyperlipidemia, unspecified; J45.901 Unspecified asthma with (acute) exacerbation; F17.210 Nicotine dependence, cigarettes, uncomplicated; Z78.0 Asymptomatic menopausal state; Z88.6 Allergy status to analgesic agent; I10 Essential (primary) hypertension
CPT/HCPCS: 77080

== ENCOUNTER 2019-03-06 18:16 | Emergency (ER) | payer MEDICARE ==
[2019-03-06] MEDS ORDERED: DUONEB *Not for PRN Use IH ONE ×2 (20:01→22:19)
--- NOTE | 2019-03-06 20:04 | Emergency Department Report ---
Blank Doc - Documentation Documentation: 73 y o female with hx of asthma presents with dry coughing and falre up asthma wheezing bilat duoneb ordered, resp called acc ordered
[2019-03-06] MEDS ORDERED: DELTASONE PO STA (23:27)
--- NOTE | 2019-03-06 23:37 | Emergency Department Report ---
- General Chief Complaint: Upper Respiratory Infection Stated Complaint: COUGH/ASTHMA Time Seen by Provider: 03/06/19 20:01 Source: patient Mode of arrival: Ambulatory Limitations: No Limitations - History of Present Illness Initial Comments: 73-year-old [place] female with past medical history of asthma management department complaining of a one-week history of cough, congestion and coryza have been clear nasal drainage and sore throat. Over the last 2 days. She began to develop some asthma symptoms begin utilizing her inhaler became worse or she can't department for a more involved treatment to avert possible asthma attack onset. MD Complaint: cough, sore throat, rhinorrhea, nasal congestion Severity: mild Consistency: constant Improves With: nothing Worsens With: nothing Associated Symptoms: rhinorrhea, nasal congestion, cough. denies: chest pain, shortness of breath, abdominal pain, vomiting, right sweats, weight loss, epistaxis - Related Data Home Medications Medication Instructions Recorded Confirmed Last Taken Aspirin EC [Aspirin Enteric Coated 81 mg PO QDAY 05/31/14 03/22/17 03/21/17 09:00 TAB] 81 mg Montelukast [Singulair] 10 mg PO QPM 05/31/14 03/22/17 03/21/17 21:00 10 mg Simvastatin 20 mg PO QDAY 05/31/14 03/22/17 03/21/17 21:00 20 mg Triamter/Hctz 37.5-25 mg 1 tab PO QDAY 05/31/14 03/22/17 03/21/17 09:00 [Maxzide-25] 1 tab Famotidine [Pepcid] 40 mg PO DAILY 03/22/17 03/22/17 03/21/17 09:00 40 mg Previous Rx's Medication Instructions Recorded Last Taken Type Azithromycin [Zithromax] 250 mg PO DAILY #5 tablet 03/23/17 Unknown Rx Benzonatate [Tessalon Perles] 100 mg PO TID PRN #20 capsule 03/23/17 Unknown Rx Prednisone [predniSONE 5 mg (6-Day 5 mg PO .TAPER #1 tab.ds.pk 03/23/17 Unknown Rx Pack, 21 Tabs)] Ibuprofen [Motrin] 600 mg PO Q8H PRN #15 tablet 01/18/18 Unknown Rx methOCARBAMOL [Robaxin TAB] 500 mg PO Q6H PRN #12 tablet 01/18/18 Unknown Rx ALBUTEROL Inhaler (OR & NICU) 1 puff IH Q4-6H PRN #1 inha 03/06/19 Unknown Rx [ProAir HFA Inhaler] Azithromycin [Zithromax] 500 mg PO QDAY #3 tablet 03/06/19 Unknown Rx hydrOXYzine HCL [Atarax] 25 mg PO Q6HR PRN #10 tablet 03/06/19 Unknown Rx predniSONE [Prednisone] 50 mg PO DAILY #5 tablet 03/06/19 Unknown Rx Allergies Allergy/AdvReac Type Severity Reaction Status Date / Time acetaminophen [From Vicodin] Allergy Itching Verified 03/06/19 18:17 hydrocodone bitartrate Allergy Itching Verified 03/06/19 18:17 [From Vicodin] ED Review of Systems ROS: Stated complaint: COUGH/ASTHMA Other details as noted in HPI Constitutional: denies: chills, fever Eyes: denies: eye pain, eye discharge, vision change ENT: denies: ear pain, throat pain Respiratory: cough, wheezing. denies: shortness of breath Cardiovascular: denies: chest pain, palpitations Endocrine: no symptoms reported Gastrointestinal: denies: abdominal pain, nausea, diarrhea Genitourinary: denies: urgency, dysuria, discharge Musculoskeletal: denies: back pain, joint swelling, arthralgia Skin: denies: rash, lesions Neurological: denies: headache, weakness, paresthesias Psychiatric: denies: anxiety, depression Hematological/Lymphatic: denies: easy bleeding, easy bruising ED Past Medical Hx - Past Medical History Previous Medical History?: Yes Hx Hypertension: Yes Hx GERD: Yes Hx Asthma: Yes Hx HIV: No Additional medical history: HIGH CHOLESTEROL. CHRONIC BACK PAIN. GLAUCOMA - Surgical History Past Surgical History?: Yes Additional Surgical History: back, L knee surgery, hysterectomy - Social History Smoking Status: Never Smoker Substance Use Type: None - Medications Home Medications: Home Medications Medication Instructions Recorded Confirmed Last Taken Type Aspirin EC [Aspirin Enteric Coated 81 mg PO QDAY 05/31/14 03/22/17 03/21/17 09:00 History TAB] 81 mg Montelukast [Singulair] 10 mg PO QPM 05/31/14 03/22/17 03/21/17 21:00 History 10 mg Simvastatin 20 mg PO QDAY 07/05/0903/22/17 03/21/17 21:00 History 20 mg Triamter/Hctz 37.5-25 mg 1 tab PO QDAY 05/31/14 03/22/17 03/21/17 09:00 History [Maxzide-25] 1 tab Famotidine [Pepcid] 40 mg PO DAILY 03/22/17 03/22/17 03/21/17 09:00 History 40 mg Azithromycin [Zithromax] 250 mg PO DAILY #5 tablet 03/23/17 Unknown Rx Benzonatate [Tessalon Perles] 100 mg PO TID PRN #20 capsule 03/23/17 Unknown Rx Prednisone [predniSONE 5 mg (6-Day 5 mg PO .TAPER #1 tab.ds.pk 03/23/17 Unknown Rx Pack, 21 Tabs)] Ibuprofen [Motrin] 600 mg PO Q8H PRN #15 tablet 01/18/18 Unknown Rx methOCARBAMOL [Robaxin TAB] 500 mg PO Q6H PRN #12 tablet 01/18/18 Unknown Rx ALBUTEROL Inhaler (OR & NICU) 1 puff IH Q4-6H PRN #1 inha 03/06/19 Unknown Rx [ProAir HFA Inhaler] Azithromycin [Zithromax] 500 mg PO QDAY #3 tablet 03/06/19 Unknown Rx hydrOXYzine HCL [Atarax] 25 mg PO Q6HR PRN #10 tablet 03/06/19 Unknown Rx predniSONE [Prednisone] 50 mg PO DAILY #5 tablet 03/06/19 Unknown Rx ED Physical Exam - General Limitations: No Limitations General appearance: alert, in no apparent distress - Head Head exam: Present: atraumatic, normocephalic. Absent: normal inspection - Eye Eye exam: Present: normal appearance, PERRL, EOMI. Absent: scleral icterus, conjunctival injection Pupils: Present: normal accommodation - ENT ENT exam: Present: normal exam, normal orophraynx, mucous membranes moist, TM's normal bilaterally - Neck Neck exam: Present: normal inspection, full ROM. Absent: tenderness, lymphadenopathy - Respiratory Respiratory exam: Present: normal lung sounds bilaterally, wheezes. Absent: respiratory distress, rales, rhonchi, chest wall tenderness - Cardiovascular Cardiovascular Exam: Present: regular rate, normal rhythm. Absent: bradycardia, tachycardia, systolic murmur, diastolic murmur, rubs, gallop - GI/Abdominal GI/Abdominal exam: Present: soft, normal bowel sounds. Absent: tenderness, guarding, hyperactive bowel sounds, hypoactive bowel sounds, organomegaly, mass, bruit - Extremities Exam Extremities exam: Present: normal inspection, full ROM, normal capillary refill - Back Exam Back exam: Present: normal inspection. Absent: CVA tenderness (R), CVA tenderness (L), muscle spasm, paraspinal tenderness - Neurological Exam Neurological exam: Present: alert, oriented X3, CN II-XII intact, normal gait - Psychiatric Psychiatric exam: Present: normal affect, normal mood. Absent: anxious, flat affect, suicidal ideation - Skin Skin exam: Present: warm, dry, intact, normal color. Absent: rash, cyanosis, diaphoretic, erythema ED Course Vital Signs 03/06/19 03/06/19 19:58 20:35 Temperature 98 F Pulse Rate 92 H Pulse Rate [ 89 Bilateral Throughout] Respiratory 20 Rate Respiratory 16 Rate [Bilateral Throughout] Blood Pressure 140/79 O2 Sat by Pulse 99 Oximetry - Reevaluation(s) Reevaluation #1: 03/06/19 23:54 Wheezing is improved unworkable breathing has decreased. Patient is alert and oriented, active, no acute bistro distress Critical care attestation.: If time is entered above; I have spent that time in minutes in the direct care of this critically ill patient, excluding procedure time. ED Disposition Clinical Impression: Acute asthma exacerbation, URI (upper respiratory infection) Disposition: DC- TO HOME OR SELFCARE Is pt being admited?: No Does the pt Need Aspirin: No Condition: Stable Instructions: Asthma (ED), Upper Respiratory Infection (ED) Prescriptions: hydrOXYzine HCL [Atarax] 25 mg PO Q6HR PRN #10 tablet PRN Reason: Itching predniSONE [Prednisone] 50 mg PO DAILY #5 tablet ALBUTEROL Inhaler (OR & NICU) [ProAir HFA Inhaler] 1 puff IH Q4-6H PRN #1 inha PRN Reason: Cough Azithromycin [Zithromax] 500 mg PO QDAY #3 tablet Referrals: JOVAN SWENSON MD [Primary Care Provider] - 3-5 Days
[2019-03-07 00:40] VITALS: BP 137/83
== END 2019-03-07 00:39 | disposition home or self-care (01) ==
LOC: ED 18:16
DX: J45.901 Unspecified asthma with (acute) exacerbation (principal); J06.9 Acute upper respiratory infection, unspecified; I10 Essential (primary) hypertension; K21.9 Gastro-esophageal reflux disease without esophagitis; E78.00 Pure hypercholesterolemia, unspecified; G89.29 Other chronic pain; M54.9 Dorsalgia, unspecified; Z90.710 Acquired absence of both cervix and uterus; Z79.82 Long term (current) use of aspirin; Z88.6 Allergy status to analgesic agent; Z88.8 Allergy status to other drugs, medicaments and biological substances
CPT/HCPCS: 94640; 99282; J7512

== ENCOUNTER 2019-09-30 15:07 | Inpatient (IN) | payer MEDICARE ==
--- NOTE | 2019-09-30 19:41 | Event Note ---
ED Screening Note Date of service: 09/30/19 Time: 19:37 ED Screening Note: pt reports that this morning she started with lower abd pain, and felt like she had to have BM and went she used the bathroom she noticed BRB in toilet bowel mixed with stool. She reports associated dizziness and diaphoresis. Pt states currently she has no abd pain and dizziness is better. She has not had a BM since this am to notice any more blood. Takes baby asa but no other blood thinners. This initial assessment/diagnostic orders/clinical plan/treatment(s) is/are subject to change based on patients health status, clinical progression and re- assessment by fellow clinical providers in the ED. Further treatment and workup at subsequent clinical providers discretion. Patient/guardian urged not to elope from the ED as their condition may be serious if not clinically assessed and managed. Initial orders include: labs occult fecal.
[2019-09-30 20:20] LABS: Alanine Aminotransferase 14 units/L (7-56); Albumin 4.3 g/dL (3.9-5); BUN/Creatinine Ratio 16; Blood Urea Nitrogen 14 mg/dL (7-17); Calcium 10.1 mg/dL (8.4-10.2); Hemolysis Index 5
[2019-09-30 20:23] LABS: Basophils % (Auto) 0.7 % (0.0-1.8); Eosinophils # (Auto) 0.1 K/mm3 (0.0-0.4); Eosinophils % (Auto) 1.4 % (0.0-4.3); Hematocrit 45.4 % (30.3-42.9); Hemoglobin 15.1 gm/dl (10.1-14.3); Lymphocytes % (Auto) 33.8 % (13.4-35.0); Mean Corpuscular HGB Conc 33 % (30-34); Mean Corpuscular Volume 87 fl (79-97); Monocytes # (Auto) 0.4 K/mm3 (0.0-0.8); Monocytes % (Auto) 7.1 % (0.0-7.3); Platelet Count 221 K/mm3 (140-440); Red Cell Distribution Width 13.4 % (13.2-15.2)
[2019-09-30 20:31] LABS: INR 1.11 (0.87-1.13)
[2019-09-30 20:32] LABS: Partial Thromboplastin Time 51.2 Sec. (24.2-36.6)
--- NOTE | 2019-09-30 22:08 | Emergency Department Report ---
ED GI Bleed HPI - General Chief complaint: GI Bleed Stated complaint: BLOOD IN STOOL Time Seen by Provider: 09/30/19 19:37 Source: patient Mode of arrival: Ambulatory Limitations: No Limitations - History of Present Illness Initial comments: 73-year-old female visits the hospital complaining of rectal bleeding today. Patient 3 bowel movements reports 2 of them had gross blood with very little stool. He is having intermittent lower crampy abdominal prior to bowel movement with associated lightheadedness and diaphoresis that improved after bowel mov ement. Patient denies previous history of GI bleed. Reports that last colonoscopy was one year ago was unremarkable. She states that the GI doctor is located "across the street". Past surgical history of hysterectomy and bowel obstruction surgery. Patient takes aspirin 81 mg daily. Denies other anticoagulant use. Associated Symptoms: denies: nausea, vomiting - Related Data Home Medications Medication Instructions Recorded Confirmed Last Taken Aspirin EC [Halfprin EC] 81 mg PO QDAY 05/31/14 03/22/17 03/21/17 09:00 81 mg Montelukast [Singulair] 10 mg PO QPM 05/31/14 03/22/17 03/21/17 21:00 10 mg Simvastatin 20 mg PO QDAY 05/31/14 03/22/17 03/21/17 21:00 20 mg Triamter/Hctz 37.5-25 mg 1 tab PO QDAY 05/31/14 03/22/17 03/21/17 09:00 [Maxzide-25] 1 tab Famotidine [Pepcid] 40 mg PO DAILY 03/22/17 03/22/17 03/21/17 09:00 40 mg Previous Rx's Medication Instructions Recorded Last Taken Type Azithromycin [Zithromax] 250 mg PO DAILY #5 tablet 03/23/17 Unknown Rx Benzonatate [Tessalon Perles] 100 mg PO TID PRN #20 capsule 03/23/17 Unknown Rx Prednisone [predniSONE 5 mg (6-Day 5 mg PO .TAPER #1 tab.ds.pk 03/23/17 Unknown Rx Pack, 21 Tabs)] Ibuprofen [Motrin] 600 mg PO Q8H PRN #15 tablet 01/18/18 Unknown Rx methOCARBAMOL [Robaxin TAB] 500 mg PO Q6H PRN #12 tablet 01/18/18 Unknown Rx ALBUTEROL Inhaler (OR & NICU) 1 puff IH Q4-6H PRN #1 inha 03/06/19 Unknown Rx [ProAir HFA Inhaler] Azithromycin [Zithromax] 500 mg PO QDAY #3 tablet 03/06/19 Unknown Rx hydrOXYzine HCL [Atarax] 25 mg PO Q6HR PRN #10 tablet 03/06/19 Unknown Rx predniSONE [Prednisone] 50 mg PO DAILY #5 tablet 03/06/19 Unknown Rx Allergies Allergy/AdvReac Type Severity Reaction Status Date / Time acetaminophen [From Vicodin] Allergy Itching Verified 03/06/19 18:17 hydrocodone bitartrate Allergy Itching Verified 03/06/19 18:17 [From Vicodin] ED Review of Systems ROS: Stated complaint: BLOOD IN STOOL Other details as noted in HPI Comment: All other systems reviewed and negative ED Past Medical Hx - Past Medical History Previous Medical History?: Yes Hx Hypertension: Yes Hx GERD: Yes Hx Asthma: Yes Hx HIV: No Additional medical history: HIGH CHOLESTEROL. CHRONIC BACK PAIN. GLAUCOMA - Surgical History Past Surgical History?: Yes Additional Surgical History: back, L knee surgery, hysterectomy - Social History Smoking Status: Never Smoker Substance Use Type: None - Medications Home Medications: Home Medications Medication Instructions Recorded Confirmed Last Taken Type Aspirin EC [Halfprin EC] 81 mg PO QDAY 05/31/14 03/22/17 03/21/17 09:00 History 81 mg Montelukast [Singulair] 10 mg PO QPM 05/31/14 03/22/17 03/21/17 21:00 History 10 mg Simvastatin 20 mg PO QDAY 05/31/14 03/22/17 03/21/17 21:00 History 20 mg Triamter/Hctz 37.5-25 mg 1 tab PO QDAY 05/31/14 03/22/17 03/21/17 09:00 History [Maxzide-25] 1 tab Famotidine [Pepcid] 40 mg PO DAILY 03/22/17 03/22/17 03/21/17 09:00 History 40 mg Azithromycin [Zithromax] 250 mg PO DAILY #5 tablet 03/23/17 Unknown Rx Benzonatate [Tessalon Perles] 100 mg PO TID PRN #20 capsule 03/23/17 Unknown Rx Prednisone [predniSONE 5 mg (6-Day 5 mg PO .TAPER #1 tab.ds.pk 03/23/17 Unknown Rx Pack, 21 Tabs)] Ibuprofen [Motrin] 600 mg PO Q8H PRN #15 tablet 01/18/18 Unknown Rx methOCARBAMOL [Robaxin TAB] 500 mg PO Q6H PRN #12 tablet 01/18/18 Unknown Rx ALBUTEROL Inhaler (OR & NICU) 1 puff IH Q4-6H PRN #1 inha 03/06/19 Unknown Rx [ProAir HFA Inhaler] Azithromycin [Zithromax] 500 mg PO QDAY #3 tablet 03/06/19 Unknown Rx hydrOXYzine HCL [Atarax] 25 mg PO Q6HR PRN #10 tablet 03/06/19 Unknown Rx predniSONE [Prednisone] 50 mg PO DAILY #5 tablet 03/06/19 Unknown Rx ED Physical Exam - General Limitations: No Limitations - Other Other exam information: General: No acute distress Head: Atraumatic Eyes: normal appearance ENT: Moist mucous membranes Neck: Normal appearance, no midline tenderness Chest: Clear to auscultation bilaterally CV: Regular rate and rhythm Abdomen: Soft, normal bowel sounds, nontender, nondistended, no rebound or guarding. Midline vertical surgical scar Rectal: Guaiac positive, brown stool, no external anal lesions or hemorrhoids noted. No gross blood. Back: Normal inspection Extremity: Normal inspection infection, full range of motion Neuro: Alert O x 3, no facial asymmetry, speech clear, no gross motor sensory deficit Psych: Appropriate behavior Skin: No rash ED Course Vital Signs 09/30/19 09/30/19 15:16 19:37 Temperature 97.4 F L 97.6 F Pulse Rate 59 L 71 Respiratory 18 20 Rate Blood Pressure 167/63 157/62 O2 Sat by Pulse 100 99 Oximetry - Consultations Consultation #1: 09/30/19 21:58 Case was discussed with on-call GI doctor Dr. Presley rec admission with plan to scope ED Medical Decision Making - Lab Data Result diagrams: 09/30/19 19:45 09/30/19 19:45 Lab Results 09/30/19 09/30/19 09/30/19 Range/Units 19:45 19:45 19:45 WBC 6.0 (4.5-11.0) K/mm3 RBC 5.20 H (3.65-5.03) M/mm3 Hgb 15.1 H (10.1-14.3) gm/dl Hct 45.4 H (30.3-42.9) % MCV 87 (79-97) fl MCH 29 (28-32) pg MCHC 33 (30-34) % RDW 13.4 (13.2-15.2) % Plt Count 221 (140-440) K/mm3 Lymph % (Auto) 33.8 (13.4-35.0) % Mckinley % (Auto) 7.1 (0.0-7.3) % Eos % (Auto) 1.4 (0.0-4.3) % Baso % (Auto) 0.7 (0.0-1.8) % Lymph # 2.0 (1.2-5.4) K/mm3 Mckinley # 0.4 (0.0-0.8) K/mm3 Eos # 0.1 (0.0-0.4) K/mm3 Baso # 0.0 (0.0-0.1) K/mm3 Seg Neutrophils % 57.0 (40.0-70.0) % Seg Neutrophils # 3.4 (1.8-7.7) K/mm3 PT 14.2 (12.2-14.9) Sec. INR 1.11 (0.87-1.13) APTT 51.2 H (24.2-36.6) Sec. Sodium 138 (137-145) mmol/L Potassium 3.5 L (3.6-5.0) mmol/L Chloride 99.8 (98-107) mmol/L Carbon Dioxide 26 (22-30) mmol/L Anion Gap 16 mmol/L BUN 14 (7-17) mg/dL Creatinine 0.9 (0.7-1.2) mg/dL Estimated GFR > 60 ml/min BUN/Creatinine Ratio 16 % Glucose 106 H (65-100) mg/dL Calcium 10.1 (8.4-10.2) mg/dL Total Bilirubin 0.30 (0.1-1.2) mg/dL AST 22 (5-40) units/L ALT 14 (7-56) units/L Alkaline Phosphatase 114 (35-129) units/L Total Protein 8.4 H (6.3-8.2) g/dL Albumin 4.3 (3.9-5) g/dL Albumin/Globulin Ratio 1.0 % Lipase 66 H (13-60) units/L - EKG Data -: EKG Interpreted by Me EKG shows normal: sinus rhythm, ST-T waves Rate: normal (64) - Medical Decision Making Patient will be admitted to the hospital for rectal bleeding. H&H stable. Case discussed with GI. Plan to admit for further GI workup and monitoring. Hospitalist informed. - Differential Diagnosis cancer, hemorrhoid, diverticulosis Critical Care Time: No Critical care attestation.: If time is entered above; I have spent that time in minutes in the direct care of this critically ill patient, excluding procedure time. ED Disposition Clinical Impression: Rectal bleeding Disposition: -09 OP ADMIT IP TO THIS HOSP Is pt being admited?: Yes Condition: Stable Time of Disposition: 22:08 (Dr Elliott/hosp)
[2019-09-30] MEDS ORDERED: ONDANSETRON 4 MG/2 ML INJ IV PRN (22:51)
[2019-09-30] MEDS ORDERED: MORPHINE 2 MG/1 ML INJ IV PRN (22:51)
--- NOTE | 2019-09-30 22:51 | History and Physical Report ---
History of Present Illness Date of examination: 09/30/19 History of present illness: 73 -year-old woman with a history of hypertension, asthma, hyperlipidemia comes to the emergency room with complaints of abdominal pain which was located and the mid to lower abdomen that started while she was trying to have a bowel mov ement. She describes the pain as sharp, constant and lasted for 5 minutes, intensity follow 10, no radiation, cannot identify exacerbating or relieving factors. She also admits to 3 episodes of blood per rectum, she felt hot and dizzy, no loss of consciousness. She had a colonoscopy last year which she stated was normal Review Of Systems: Constitutional: no weight loss, fever, chills Ears, eyes, nose, mouth and throat: no nasal congestion, no nasal discharge, no sinus pressure, blurry vision, diplopia Neck: No neck pain or rigidity. Cardiovascular: No palpitations, chest pain Respiratory: No shortness of breath, cough Gastrointestinal: + hematochezia, abdominal pain Genitourinary : no dysuria, frequency Musculoskeletal: no muscle ache , joint pain Integumentary: no rash, no pruritis Neurological: no parathesias, focal weakness Endocrine: no cold or heat intolerance, no polyuria or polydipsia Hematologic/Lymphatic: no easy bruising, no easy bleeding, no gland swelling Allergic/Immunologic: no urticaria, no angioedema. PAST MEDICAL HISTORY:hypertension, asthma, hyperlipidemia PAST SURGICAL HISTORY: Partial hysterectomy, back surgery, total knee replacement cyst removal from the breast FAMILY HISTORY:hypertension, diabetes SOCIAL HISTORY: Denies tobacco, drugs, alcohol Medications and Allergies Allergies Allergy/AdvReac Type Severity Reaction Status Date / Time acetaminophen [From Vicodin] Allergy Itching Verified 03/06/19 18:17 hydrocodone bitartrate Allergy Itching Verified 03/06/19 18:17 [From Vicodin] Home Medications Medication Instructions Recorded Confirmed Last Taken Type Simvastatin 20 mg PO QDAY 05/31/14 09/30/19 09/30/19 History Triamter/Hctz 37.5-25 mg 1 tab PO QDAY 05/31/14 09/30/19 09/30/19 History [Maxzide-25] Famotidine [Pepcid] 40 mg PO DAILY 03/22/17 09/30/19 09/30/19 History Propylene Glycol/Peg 400 [Systane 10 ml OP PRN 09/30/19 09/30/19 Unknown History 0.3-0.4% Eye Drops] Travoprost [Travatan Z] 2.5 ml OP PRN 09/30/19 09/30/19 Unknown History Exam - Constitutional Vitals: Temp Pulse Resp BP Pulse Ox 97.5 F L 68 17 150/74 100 09/30/19 22:30 09/30/19 22:30 09/30/19 22:30 09/30/19 22:30 09/30/19 22:30 Results - Labs CBC & Chem 7: 09/30/19 23:15 09/30/19 19:45 Labs: Abnormal lab results 09/30/19 09/30/19 09/30/19 Range/Units 19:45 19:45 19:45 RBC 5.20 H (3.65-5.03) M/mm3 Hgb 15.1 H (10.1-14.3) gm/dl Hct 45.4 H (30.3-42.9) % APTT 51.2 H (24.2-36.6) Sec. Potassium 3.5 L (3.6-5.0) mmol/L Glucose 106 H (65-100) mg/dL Total Protein 8.4 H (6.3-8.2) g/dL Lipase 66 H (13-60) units/L Assessment and Plan Lower GI bleed: Hypertension Hyperlipidemia Asthma Plan Admit to medicine Start Golytely prep, GI was consulted to see the patient Check serial hemoglobin DVT prophylaxis
[2019-09-30 23:09] LABS: Bilirubin,Urine NEG (Negative); Blood,Urine NEG (Negative); Color,Urine Yellow (Yellow); Urobilinogen,Urine < 2.0 mg/dL (<2.0); WBC,Urine < 1.0 /HPF (0.0-6.0)
[2019-09-30] MEDS: SODIUM CHLORIDE 0.45% 1000 ML 1,000 ML IV SCH (23:09)
[2019-09-30 23:32] LABS: Hematocrit 36.9 % (30.3-42.9); Hemoglobin 12.2 gm/dl (10.1-14.3)
[2019-10-01] MEDS ORDERED: POLYETHYLENE GLYCOL/ELECT SOLN 4000 ML PO ONE ×2 (00:30→03:00)
[2019-10-01] MEDS: SODIUM CHLORIDE 0.45% 1000 ML 1,000 ML IV SCH (01:35)
[2019-10-01 02:58] LABS: Basophils # (Auto) 0.1 K/mm3 (0.0-0.1); Basophils % (Auto) 1.4 % (0.0-1.8); Eosinophils # (Auto) 0.1 K/mm3 (0.0-0.4); Eosinophils % (Auto) 1.6 % (0.0-4.3); Hematocrit 35.2 % (30.3-42.9); Hemoglobin 11.7 gm/dl (10.1-14.3); Lymphocytes # (Auto) 2.2 K/mm3 (1.2-5.4); Lymphocytes % (Auto) 34.6 % (13.4-35.0); Mean Corpuscular HGB Conc 33 % (30-34); Mean Corpuscular Volume 88 fl (79-97); Monocytes # (Auto) 0.6 K/mm3 (0.0-0.8); Monocytes % (Auto) 9.7 % (0.0-7.3); Platelet Count 215 K/mm3 (140-440); Red Cell Distribution Width 13.7 % (13.2-15.2)
[2019-10-01 03:10] LABS: BUN/Creatinine Ratio 18; Blood Urea Nitrogen 16 mg/dL (7-17); Calcium 9.3 mg/dL (8.4-10.2); Hemolysis Index 2
[2019-10-01 06:42] LABS: Hematocrit 36.5 % (30.3-42.9); Hemoglobin 12.1 gm/dl (10.1-14.3)
--- NOTE | 2019-10-01 08:12 | Gastroenterology Consultation ---
History of Present Illness - Reason for Consult Consult date: 10/01/19 Rectal bleeding Requesting physician: RUBÉN RICHARDS - History of Present Illness 73-year-old female presents with rectal bleeding. she reports 2 BM's with gross BRBPR, associated with intermittent lower crampy abdominal prior to bowel movement with associated lightheadedness and diaphoresis that improved after bowel movement. Never had this before. No alleviating or exacerbating factors She had a colonoscopy with Dr. Gutiérrez 09/26/2018 that showed descending and sigmoid colon diverticulosis otherwise normal. Home meds updated reviewed and reconciled Past History Past Medical History: other (HTN, back pain) Past Surgical History: Other (hysterectomy) Social history: no significant social history Family history: no significant family history Medications and Allergies Allergies Allergy/AdvReac Type Severity Reaction Status Date / Time acetaminophen [From Vicodin] Allergy Itching Verified 03/06/19 18:17 hydrocodone bitartrate Allergy Itching Verified 03/06/19 18:17 [From Vicodin] Home Medications Medication Instructions Recorded Confirmed Last Taken Type Simvastatin 20 mg PO QDAY 05/31/14 09/30/19 09/30/19 History Triamter/Hctz 37.5-25 mg 1 tab PO QDAY 05/31/14 09/30/19 09/30/19 History [Maxzide-25] Famotidine [Pepcid] 40 mg PO DAILY 03/22/17 09/30/19 09/30/19 History Propylene Glycol/Peg 400 [Systane 10 ml OP PRN 09/30/19 09/30/19 Unknown History 0.3-0.4% Eye Drops] Travoprost [Travatan Z] 2.5 ml OP PRN 09/30/19 09/30/19 Unknown History Active Meds: Active Medications Sodium Chloride (Nacl 0.45% 1000 Ml) 1,000 mls @ 75 mls/hr IV DIRECT CHE Last Admin: 10/01/19 01:35 Dose: 75 mls/hr Documented by: Morphine Sulfate (Morphine) 1 mg IV Q4H PRN PRN Reason: Pain, Moderate (4-6) Ondansetron HCl (Zofran) 4 mg IV Q8H PRN PRN Reason: Nausea And Vomiting Last Admin: 10/01/19 03:19 Dose: 4 mg Documented by: Potassium Chloride (K-Dur) 40 meq PO ONCE ONE Stop: 10/01/19 09:01 Sodium Chloride (Sodium Chloride Flush Syringe 10 Ml) 10 ml IV BID CHE Sodium Chloride (Sodium Chloride Flush Syringe 10 Ml) 10 ml IV PRN PRN PRN Reason: LINE FLUSH Review of Systems - Review of Systems All systems: negative (10 systems reviewed and neg except as above in the HPI) Exam - Constitutional Vital Signs: Temp Pulse Resp BP Pulse Ox 97.5 F L 73 18 165/84 99 10/01/19 03:55 10/01/19 03:55 10/01/19 03:55 10/01/19 03:55 10/01/19 03:55 General appearance: no acute distress - EENT Eyes: EOM intact ENT: hearing intact - Neck Neck: supple - Respiratory Respiratory: bilateral: CTA - Cardiovascular Rhythm: regular - Gastrointestinal General gastrointestinal: Present: soft, non-tender - Integumentary Integumentary: Present: warm, dry - Musculoskeletal Musculoskeletal: normal - Neurologic Neurological: alert and oriented x3 - Psychiatric Psychiatric: appropriate mood/affect - Labs CBC & Chem 7: 10/01/19 05:45 10/01/19 02:28 Lab Results: Laboratory Results - last 24 hr 09/30/19 09/30/19 09/30/19 19:45 19:45 19:45 WBC 6.0 RBC 5.20 H Hgb 15.1 H Hct 45.4 H MCV 87 MCH 29 MCHC 33 RDW 13.4 Plt Count 221 Lymph % (Auto) 33.8 [place] % (Auto) 7.1 Eos % (Auto) 1.4 Baso % (Auto) 0.7 Lymph # 2.0 [place] # 0.4 Eos # 0.1 Baso # 0.0 Seg Neutrophils % 57.0 Seg Neutrophils # 3.4 PT 14.2 INR 1.11 APTT 51.2 H Sodium 138 Potassium 3.5 L Chloride 99.8 Carbon Dioxide 26 Anion Gap 16 BUN 14 Creatinine 0.9 Estimated GFR > 60 BUN/Creatinine Ratio 16 Glucose 106 H Calcium 10.1 Total Bilirubin 0.30 AST 22 ALT 14 Alkaline Phosphatase 114 Total Protein 8.4 H Albumin 4.3 Albumin/Globulin Ratio 1.0 Lipase 66 H Urine Color Urine Turbidity Urine pH Ur Specific [place] Urine Protein Urine Glucose (UA) Urine Ketones Urine Blood Urine Nitrite Urine Bilirubin Urine Urobilinogen Ur Leukocyte Esterase Urine WBC (Auto) Urine RBC (Auto) U Epithel Cells (Auto) 09/30/19 09/30/19 10/01/19 22:59 23:15 02:28 WBC 6.4 RBC 4.00 Hgb 12.2 11.7 Hct 36.9 D 35.2 MCV 88 MCH 29 MCHC 33 RDW 13.7 Plt Count 215 Lymph % (Auto) 34.6 [place] % (Auto) 9.7 H Eos % (Auto) 1.6 Baso % (Auto) 1.4 Lymph # 2.2 [place] # 0.6 Eos # 0.1 Baso # 0.1 Seg Neutrophils % 52.7 Seg Neutrophils # 3.4 PT INR APTT Sodium Potassium Chloride Carbon Dioxide Anion Gap BUN Creatinine Estimated GFR BUN/Creatinine Ratio Glucose Calcium Total Bilirubin AST ALT Alkaline Phosphatase Total Protein Albumin Albumin/Globulin Ratio Lipase Urine Color Yellow Urine Turbidity Clear Urine pH 6.0 Ur Specific [place] 1.010 Urine Protein 100 mg/dl Urine Glucose (UA) Neg Urine Ketones Neg Urine Blood Neg Urine Nitrite Neg Urine Bilirubin Neg Urine Urobilinogen < 2.0 Ur Leukocyte Esterase Neg Urine WBC (Auto) < 1.0 Urine RBC (Auto) 1.0 U Epithel Cells (Auto) < 1.0 10/01/19 10/01/19 02:28 05:45 WBC RBC Hgb 12.1 Hct 36.5 MCV MCH MCHC RDW Plt Count Lymph % (Auto) [place] % (Auto) Eos % (Auto) Baso % (Auto) Lymph # [place] # Eos # Baso # Seg Neutrophils % Seg Neutrophils # PT INR APTT Sodium 142 Potassium 3.4 L Chloride 103.7 Carbon Dioxide 25 Anion Gap 17 BUN 16 Creatinine 0.9 Estimated GFR > 60 BUN/Creatinine Ratio 18 Glucose 137 H Calcium 9.3 Total Bilirubin AST ALT Alkaline Phosphatase Total Protein Albumin Albumin/Globulin Ratio Lipase Urine Color Urine Turbidity Urine pH Ur Specific [place] Urine Protein Urine Glucose (UA) Urine Ketones Urine Blood Urine Nitrite Urine Bilirubin Urine Urobilinogen Ur Leukocyte Esterase Urine WBC (Auto) Urine RBC (Auto) U Epithel Cells (Auto) Assessment and Plan Ddx diverticular bleed, less likely hemorrhoids, polyps, AVM, etc. given amount of bleeding described will pursue colonoscopy Final recs based upon results - Patient Problems (1) Rectal bleeding Current Visit: Yes Status: Acute
[2019-10-01] MEDS ORDERED: POTASSIUM CHLORIDE ER 20 MEQ TAB PO ONE ×2 (09:00→15:00)
[2019-10-01] MEDS ORDERED: LIDOCAINE MPF (2%) 20 MG/1 ML VIAL 5 ML ONE (10:00)
[2019-10-01] MEDS ORDERED: SODIUM CHLORIDE 0.9% 1000 ML 1,000 ML IV SCH ×2 (10:00)
--- NOTE | 2019-10-01 10:09 | Anesthesia Consultation ---
Anesthesia Consult and Med Hx Date of service: 10/01/19 - Airway Anesthetic Teeth Evaluation: Dentures, Partials ROM Head & Neck: Adequate Mental/Hyoid Distance: Adequate Mallampati Class: Class I Intubation Access Assessment: Probably Good - Pulmonary Exam CTA: Yes - Cardiac Exam Cardiac Exam: RRR - Pre-Operative Health Status ASA Pre-Surgery Classification: ASA2 Proposed Anesthetic Plan: MAC - Pulmonary Hx Respiratory Symptoms: Yes (Hx. of Bronchitis) - Cardiovascular System Hx Hypertension: Yes Hx Cardia Arrhythmia: No - Central Nervous System Hx Neuromuscular Disorder: No Hx Psychiatric Problems: No - Gastrointestinal Hx Gastroesophageal Reflux Disease: Yes - Endocrine Hx Renal Disease: No - Other Systems Hx Alcohol Use: No Hx Obesity: Yes - Additional Comments Anesthesia Medical History Comments: Patient denied previous anesthesia related complications.
--- NOTE | 2019-10-01 10:11 | Anesthesia Day of Surgery ---
Anesthesia Day of Surgery - Day of Surgery Patient Examined: Yes Patient H&P Reviewed: Yes Patient is NPO: Yes
[2019-10-01] MEDS ORDERED: PROPOFOL 200 MG/20 ML VIAL IV ONE (10:14)
--- NOTE | 2019-10-01 10:53 | Operative Report ---
Operative Report Operative Report: DOS: 10/01/19 SURGEON: Endy Llanes MD COLONOSCOPY REPORT PREOPERATIVE AND POSTOPERATIVE DIAGNOSIS: GI bleed DESCRIPTION OF PROCEDURE: The colonoscope was passed to the terminal ileum as identified by the ileal tissue. Scope was carefully withdrawn. Retroflexion was performed in the rectum. At the end of procedure, the scope was cleaned using normal technique. Vital signs monitored continuously throughout. SEDATION: Provided by Anesthesiology Services. Quality of the prep was adequate. COMPLICATIONS: None. ESTIMATED BLOOD LOSS: none FINDINGS: * Normal Terminal Ileum * Mild diverticulosis of the cecum, descending, and sigmoid colon * Mild estela-diverticular edema in the sigmoid colon * NO active bleeding nor source for GI bleeding RECOMMENDATIONS: Start diet Monitor clinically and repeat CBC this afternoon If no more bleeding and Hgb stable can DC home with presumed diverticular bleed, as risk of rebleeding is low
--- NOTE | 2019-10-01 11:02 | Post Anesthesia Evaluation ---
- Post Anesthesia Evaluation Patient Participated: Yes Airway Patent: Yes Stable Respiratory Function: Yes Nausea/Vomiting: No Temp > 96.8F: Yes Pain Manageable: Yes Adequeate Hydration: Yes Anesthesia Complications: No Block Receding Appropriately: Not Applicable Patient on Ventilator: No
[2019-10-01 12:05] LABS: Hematocrit 35.4 % (30.3-42.9); Hemoglobin 11.9 gm/dl (10.1-14.3); Mean Corpuscular HGB Conc 34 % (30-34); Mean Corpuscular Volume 88 fl (79-97); Red Blood Count 4.03 M/mm3 (3.65-5.03); Red Cell Distribution Width 13.7 % (13.2-15.2)
[2019-10-01 13:25] LABS: Platelet Count 198 K/mm3 (140-440)
--- NOTE | 2019-10-01 14:48 | Progress Note ---
Assessment and Plan Assessment and plan: 73-year-old -[place] female presented to the emergency department for complaints of bright blood per rectum 3 Rectal bleeding - Patient didn't have any more bleeding - GI consulted and will do colonoscopy - H&H is stable - We'll continue to monitor DVT prophylaxis SCD Disposition; continue inpatient care, follow GI recommendations. History Interval history: Patient was seen and evaluated this morning, patient was alert and oriented, no more rectal bleeding. Hospitalist Physical - Physical exam Narrative exam: Not in cardiopulmonary distress. The patient is obese. Vital signs as documented. Head exam is unremarkable. No scleral icterus . Neck is without jugular venous distension, thyromegaly, or carotid bruits. Lungs are clear to auscultation. Cardiac exam reveals regular rate and Rhythm. Abdominal exam reveals normal bowel sounds. Extremities are nonedematous and both femoral and pedal pulses are normal. [employer]: Alert and oriented 3. No focal weakness. - Constitutional Vitals: Temp Pulse Resp BP Pulse Ox 97.9 F 88 13 127/56 99 10/01/19 10:46 10/01/19 13:57 10/01/19 11:15 10/01/19 11:15 10/01/19 11:15 Results - Labs CBC & Chem 7: 10/01/19 11:29 10/01/19 02:28 Labs: Laboratory Last Values WBC 6.4 K/mm3 (4.5-11.0) 10/01/19 11:29 RBC 4.03 M/mm3 (3.65-5.03) 10/01/19 11:29 Hgb 11.9 gm/dl (10.1-14.3) 10/01/19 11:29 Hct 35.4 % (30.3-42.9) 10/01/19 11:29 MCV 88 fl (79-97) 10/01/19 11:29 MCH 30 pg (28-32) 10/01/19 11:29 MCHC 34 % (30-34) 10/01/19 11:29 RDW 13.7 % (13.2-15.2) 10/01/19 11:29 Plt Count 198 K/mm3 (140-440) 10/01/19 11:29 Lymph % (Auto) 34.6 % (13.4-35.0) 10/01/19 02:28 [place] % (Auto) 9.7 % (0.0-7.3) H 10/01/19 02:28 Eos % (Auto) 1.6 % (0.0-4.3) 10/01/19 02:28 Baso % (Auto) 1.4 % (0.0-1.8) 10/01/19 02:28 Lymph # 2.2 K/mm3 (1.2-5.4) 10/01/19 02:28 [place] # 0.6 K/mm3 (0.0-0.8) 10/01/19 02:28 Eos # 0.1 K/mm3 (0.0-0.4) 10/01/19 02:28 Baso # 0.1 K/mm3 (0.0-0.1) 10/01/19 02:28 Seg Neutrophils % 52.7 % (40.0-70.0) 10/01/19 02:28 Seg Neutrophils # 3.4 K/mm3 (1.8-7.7) 10/01/19 02:28 PT 14.2 Sec. (12.2-14.9) 09/30/19 19:45 INR 1.11 (0.87-1.13) 09/30/19 19:45 APTT 51.2 Sec. (24.2-36.6) H 09/30/19 19:45 Sodium 142 mmol/L (137-145) 10/01/19 02:28 Potassium 3.4 mmol/L (3.6-5.0) L 10/01/19 02:28 Chloride 103.7 mmol/L (98-107) 10/01/19 02:28 Carbon Dioxide 25 mmol/L (22-30) 10/01/19 02:28 Anion Gap 17 mmol/L 10/01/19 02:28 BUN 16 mg/dL (7-17) 10/01/19 02:28 Creatinine 0.9 mg/dL (0.7-1.2) 10/01/19 02:28 Estimated GFR > 60 ml/min 10/01/19 02:28 BUN/Creatinine Ratio 18 % 10/01/19 02:28 Glucose 137 mg/dL (65-100) H 10/01/19 02:28 Calcium 9.3 mg/dL (8.4-10.2) 10/01/19 02:28 Total Bilirubin 0.30 mg/dL (0.1-1.2) 09/30/19 19:45 AST 22 units/L (5-40) 09/30/19 19:45 ALT 14 units/L (7-56) 09/30/19 19:45 Alkaline Phosphatase 114 units/L (35-129) 09/30/19 19:45 Total Protein 8.4 g/dL (6.3-8.2) H 09/30/19 19:45 Albumin 4.3 g/dL (3.9-5) 09/30/19 19:45 Albumin/Globulin Ratio 1.0 % 09/30/19 19:45 Lipase 66 units/L (13-60) H 09/30/19 19:45 Urine Color Yellow (Yellow) 09/30/19 22:59 Urine Turbidity Clear (Clear) 09/30/19 22:59 Urine pH 6.0 (5.0-7.0) 09/30/19 22:59 Ur Specific [place] 1.010 (1.003-1.030) 09/30/19 22:59 Urine Protein 100 mg/dl mg/dL (Negative) 09/30/19 22:59 Urine Glucose (UA) Neg mg/dL (Negative) 09/30/19 22:59 Urine Ketones Neg mg/dL (Negative) 09/30/19 22:59 Urine Blood Neg (Negative) 09/30/19 22:59 Urine Nitrite Neg (Negative) 09/30/19 22:59 Urine Bilirubin Neg (Negative) 09/30/19 22:59 Urine Urobilinogen < 2.0 mg/dL (<2.0) 09/30/19 22:59 Ur Leukocyte Esterase Neg (Negative) 09/30/19 22:59 Urine WBC (Auto) < 1.0 /HPF (0.0-6.0) 09/30/19 22:59 Urine RBC (Auto) 1.0 /HPF (0.0-6.0) 09/30/19 22:59 U Epithel Cells (Auto) < 1.0 /HPF (0-13.0) 09/30/19 22:59 Active Medications - Current Medications Current Medications: Generic Name Dose Route Start Last Admin Trade Name Freq PRN Reason Stop Dose Admin Sodium Chloride 1,000 mls @ 50 mls/hr 10/01/19 10:00 Nacl 0.9% 1000 Ml IV DIRECT CHE Morphine Sulfate 1 mg 09/30/19 22:51 Morphine IV Q4H PRN Pain, Moderate (4-6) Ondansetron HCl 4 mg 09/30/19 22:51 10/01/19 03:19 Zofran IV 4 mg Q8H PRN Administration Nausea And Vomiting Potassium Chloride 40 meq 10/01/19 15:00 K-Dur PO 10/01/19 15:01 ONCE ONE Sodium Chloride 10 ml 10/01/19 10:00 10/01/19 10:00 Sodium Chloride Flush Syringe 10 Ml IV Not Given BID CHE Sodium Chloride 10 ml 09/30/19 22:51 Sodium Chloride Flush Syringe 10 Ml IV PRN PRN LINE FLUSH
[2019-10-02 07:47] VITALS: BP 141/90
--- NOTE | 2019-10-02 08:30 | Discharge Summary ---
Providers - Providers Date of Admission: 09/30/19 22:51 Date of discharge: 10/02/19 Attending physician: BALTAZAR SUAREZ MD 09/30/19 22:03 Consult to Physician [CONS] Urgent Comment: Dr. English spoke with Dr. Presley @ [phone] Consulting Provider: AMOS PRESLEY Physician Instructions: Reason For Exam: rectal bleeding Primary care physician: OLMAN NIETO Hospitalization Reason for admission: lower GI bleeding Condition: Stable Procedures: Colonoscopy Hospital course: 73-year-old -[place]yp[place] female presented to the emergency department for complaints of bright blood per rectum 3 Patient was admitted to the floor and no rectal bleeding overnight. Colonoscopy was done and significant for mild diverticulosis in the sigmoid colon, sacrum and descending colon. GI evaluated and today, no further workup. Since H&H was stable. She discharged home with advice to increase fiber diet. Patient was hemodynamically stable at the time of discharge. Disposition: DC- TO HOME OR SELFCARE Time spent for discharge: 32 minutes - Discharge Diagnoses (1) Rectal bleeding Status: Acute (2) Accelerated hypertension Status: Acute (3) Obesity (BMI 30.0-34.9) Status: Chronic Core Measure Documentation - Palliative Care Palliative Care/ Comfort Measures: Not Applicable - Core Measures Any of the following diagnoses?: none Exam - Physical Exam Narrative exam: Not in cardiopulmonary distress. The patient is obese. Vital signs as documented. Head exam is unremarkable. No scleral icterus . Neck is without jugular venous distension, thyromegaly, or carotid bruits. Lungs are clear to auscultation. Cardiac exam reveals regular rate and Rhythm. Abdominal exam reveals normal bowel sounds. Extremities are nonedematous and both femoral and pedal pulses are normal. MAITRE D': Alert and oriented 3. No focal weakness. - Constitutional Vitals: Temp Pulse Resp BP Pulse Ox 98.8 F 73 18 141/90 98 10/02/19 07:45 10/02/19 07:45 10/02/19 07:45 10/02/19 07:45 10/02/19 07:45 Plan Activity: no restrictions Weight Bearing Status: Full Weight Bearing Diet: regular Follow up with: OLMAN NIETO MD [Primary Care Provider] - 7 Days
--- NOTE | 2019-10-02 10:34 | Gastroenterology Progress Note ---
<ABBY LOTT - Last Filed: 10/02/19 11:16> Assessment and Plan 1.LGIB -H/H 11.9/35.4-stable -continue to monitor and transfuse as eneded -no active signs of bleeding overnight or this am -colonoscopy with Dr. Gutiérrez 09/26/2018 that showed descending and sigmoid colon diverticulosis otherwise normal -s/p repeat colonoscopy yesterday (10/01/19) that showed: * Normal Terminal Ileum * Mild diverticulosis of the cecum, descending, and sigmoid colon * Mild estela-diverticular edema in the sigmoid colon * NO active bleeding nor source for GI bleeding -etiology-presumed diverticular bleed -clinically, patient is stable. Denies abd pain or N/V. -okay to advance diet -continue supportive care -patient okay to be d/c per GI standpoint with f/u in clinic -will sign off, please call if needed Subjective Date of service: 10/02/19 Principal diagnosis: LGIB Interval history: Patient resting in bed this am w/o acute distress. No active signs of bleeding overnight or this am. Denies abd pain or N/V. Objective - Constitutional Vitals: Temp Pulse Resp BP Pulse Ox 98.8 F 73 18 141/90 98 10/02/19 07:45 10/02/19 07:45 10/02/19 07:45 10/02/19 07:45 10/02/19 07:45 General appearance: no acute distress - EENT Eyes: PERRL, EOM intact ENT: hearing intact - Respiratory Respiratory effort: normal - Cardiovascular Rhythm: regular - Gastrointestinal General gastrointestinal: Present: soft, non-tender, non-distended, normal bowel sounds - Integumentary Integumentary: Present: warm, dry - Neurologic Neurological: alert and oriented x3 - Labs CBC & Chem 7: 10/01/19 11:29 10/01/19 02:28 Labs: Laboratory Results - last 24 hr 10/01/19 11:29 WBC 6.4 RBC 4.03 Hgb 11.9 Hct 35.4 MCV 88 MCH 30 MCHC 34 RDW 13.7 Plt Count 198 <CALE DIOP - Last Filed: 10/02/19 22:57> Assessment and Plan Patient discharged prior to my rounds so not seen and examined. I have reviewed the advanced practitioner's evaluation, assessment, and plan, and agree with them. - Patient Problems (1) Rectal bleeding Status: Acute Objective - Constitutional Vitals: Temp Pulse Resp BP Pulse Ox 98.8 F 57 L 18 141/90 98 10/02/19 07:45 10/02/19 13:00 10/02/19 07:45 10/02/19 07:45 10/02/19 07:45 - Labs CBC & Chem 7: 10/01/19 11:29 10/01/19 02:28
== END 2019-10-02 13:55 | disposition home or self-care (01) | DRG 379 ==
LOC: ED 15:07 → 4A 22:51
PROVIDERS: ADMIT Internal Medicine; ATTEND Internal Medicine
PROC: 0DJD8ZZ Inspection of Lower Intestinal Tract, Via Natural or Artificial Opening Endoscopic (ICD-10-PCS; principal; 2019-10-01)
DX: K57.31 Diverticulosis of large intestine without perforation or abscess with bleeding (principal); I10 Essential (primary) hypertension; K21.9 Gastro-esophageal reflux disease without esophagitis; E66.9 Obesity, unspecified; J45.909 Unspecified asthma, uncomplicated; E78.5 Hyperlipidemia, unspecified; G89.29 Other chronic pain; M54.9 Dorsalgia, unspecified; Z68.33 Body mass index [BMI] 33.0-33.9, adult; Z79.899 Other long term (current) drug therapy; Z90.711 Acquired absence of uterus with remaining cervical stump; Z82.49 Family history of ischemic heart disease and other diseases of the circulatory system; Z83.3 Family history of diabetes mellitus
CPT/HCPCS: 36415; 80048; 80053; 81001; 82271; 83690; 85014; 85018; 85025; 85027; 85610; 85730; 93005; 93010; G0378; J2405; J2704; J7030

== ENCOUNTER 2020-11-21 16:26 | Emergency (ER) | payer MEDICARE ==
[2020-11-21 21:53] VITALS: BP 125/88
[2020-11-21 23:20] LABS: Hematocrit 34.5 % (30.3-42.9); Hemoglobin 11.5 gm/dl (10.1-14.3); Mean Corpuscular HGB Conc 33 % (30-34); Mean Corpuscular Volume 91 fl (79-97); Platelet Count 264 K/mm3 (140-440)
[2020-11-21 23:39] LABS: Albumin 3.7 g/dL (3.9-5); Calcium 9.6 mg/dL (8.4-10.2)
--- NOTE | 2020-11-22 01:43 | Emergency Department Report ---
ED Abdominal Pain HPI - General Chief Complaint: Abdominal Pain Stated Complaint: ASTHMA/VOMITTING/NAUSEA Time Seen by Provider: 11/22/20 00:59 Source: patient Mode of arrival: Ambulatory Limitations: No Limitations - History of Present Illness Initial Comments: 74-year-old -[place] female with a past medical history of hypertension, asthma, hyperlipidemia presents emergency department complaining of 1 day history abdominal pain diffusely located and worsens with coughing and direct palpation. She reports having some issues with nausea and 2 vomiting episodes after trying to consume some Jell-O and some medications on yesterday but no vomiting episodes today. Stools are slightly constipated as she she had not had a bowel movement for 2-1/2 to 3 days prior to having a bowel movement while in the emergency department. She reports no hemoptysis no hematemesis no hematochezia, no fever, chills, sweats. Reports no trauma, no dysuria no hematuria MD Complaint: abdominal pain Location: diffuse Migration to: no migration Severity: mild, moderate Quality: stabbing, aching Consistency: intermittent Associated Symptoms: constipation. denies: chills, melena, anorexia, syncope - Related Data Home Medications Medication Instructions Recorded Confirmed Last Taken Simvastatin 20 mg PO QDAY 05/31/14 09/30/19 09/30/19 Triamter/Hctz 37.5-25 mg 1 tab PO QDAY 05/31/14 09/30/19 09/30/19 [Maxzide-25] Famotidine [Pepcid] 40 mg PO DAILY 03/22/17 09/30/19 09/30/19 Propylene Glycol/Peg 400 [Systane 10 ml OP PRN 09/30/19 09/30/19 Unknown 0.3-0.4% Eye Drops] Travoprost [Travatan Z] 2.5 ml OP PRN 09/30/19 09/30/19 Unknown Previous Rx's Medication Instructions Recorded Last Taken Type Ciprofloxacin HCl [Ciprofloxacin 500 mg PO Q12HR #20 tab 11/22/20 Unknown Rx TAB] metroNIDAZOLE [Flagyl] 500 mg PO Q12HR #20 tab 11/22/20 Unknown Rx Allergies Allergy/AdvReac Type Severity Reaction Status Date / Time acetaminophen [From Vicodin] Allergy Itching Verified 03/06/19 18:17 hydrocodone bitartrate Allergy Itching Verified 03/06/19 18:17 [From Vicodin] ED Review of Systems ROS: Stated complaint: ASTHMA/VOMITTING/NAUSEA Other details as noted in HPI Comment: All other systems reviewed and negative ED Past Medical Hx - Past Medical History Previous Medical History?: Yes Hx Hypertension: Yes Hx GERD: Yes Hx Renal Disease: No Hx Asthma: Yes Hx HIV: No Additional medical history: HIGH CHOLESTEROL. CHRONIC BACK PAIN. GLAUCOMA - Surgical History Past Surgical History?: Yes Additional Surgical History: back, L knee surgery, hysterectomy - Social History Smoking Status: Never Smoker Substance Use Type: None - Medications Home Medications: Home Medications Medication Instructions Recorded Confirmed Last Taken Type Simvastatin 20 mg PO QDAY 05/31/14 09/30/19 09/30/19 History Triamter/Hctz 37.5-25 mg 1 tab PO QDAY 05/31/14 09/30/19 09/30/19 History [Maxzide-25] Famotidine [Pepcid] 40 mg PO DAILY 03/22/17 09/30/19 09/30/19 History Propylene Glycol/Peg 400 [Systane 10 ml OP PRN 09/30/19 09/30/19 Unknown History 0.3-0.4% Eye Drops] Travoprost [Travatan Z] 2.5 ml OP PRN 09/30/19 09/30/19 Unknown History Ciprofloxacin HCl [Ciprofloxacin 500 mg PO Q12HR #20 tab 11/22/20 Unknown Rx TAB] metroNIDAZOLE [Flagyl] 500 mg PO Q12HR #20 tab 11/22/20 Unknown Rx ED Physical Exam - General Limitations: No Limitations General appearance: alert, in no apparent distress - Head Head exam: Present: atraumatic, normocephalic - Eye Eye exam: Present: normal appearance, PERRL, EOMI. Absent: scleral icterus, conjunctival injection, periorbital swelling, periorbital tenderness Pupils: Present: normal accommodation - ENT ENT exam: Present: normal exam, normal orophraynx, mucous membranes moist - Neck Neck exam: Present: normal inspection - Respiratory Respiratory exam: Present: normal lung sounds bilaterally. Absent: respiratory distress - Cardiovascular Cardiovascular Exam: Present: regular rate, normal rhythm. Absent: systolic murmur, diastolic murmur, rubs, gallop - GI/Abdominal GI/Abdominal exam: Present: soft, normal bowel sounds - Extremities Exam Extremities exam: Present: normal inspection - Back Exam Back exam: Present: normal inspection - Neurological Exam Neurological exam: Present: alert, oriented X3 - Psychiatric Psychiatric exam: Present: normal affect, normal mood - Skin Skin exam: Present: warm, dry, intact, normal color. Absent: rash ED Course Vital Signs 11/21/20 21:50 Temperature 98 F Pulse Rate 68 Respiratory 18 Rate Blood Pressure 125/88 O2 Sat by Pulse 98 Oximetry ED Medical Decision Making - Lab Data Result diagrams: 11/21/20 22:37 11/21/20 22:37 Lab Results 11/21/20 11/21/20 Range/Units 22:37 22:37 WBC 12.2 H (4.5-11.0) K/mm3 RBC 3.80 (3.65-5.03) M/mm3 Hgb 11.5 (10.1-14.3) gm/dl Hct 34.5 (30.3-42.9) % MCV 91 (79-97) fl MCH 30 (28-32) pg MCHC 33 (30-34) % RDW 13.0 L (13.2-15.2) % Plt Count 264 (140-440) K/mm3 Sodium 142 (137-145) mmol/L Potassium 4.5 (3.6-5.0) mmol/L Chloride 98.3 (98-107) mmol/L Carbon Dioxide 31 H (22-30) mmol/L Anion Gap 17 mmol/L BUN 24 H (7-17) mg/dL Creatinine 1.8 H (0.6-1.2) mg/dL Estimated GFR 33 ml/min BUN/Creatinine Ratio 13 % Glucose 132 H (65-100) mg/dL Calcium 9.6 (8.4-10.2) mg/dL Total Bilirubin 0.70 (0.1-1.2) mg/dL AST 26 (5-40) units/L ALT 17 (7-56) units/L Alkaline Phosphatase 76 (35-129) units/L Total Protein 6.8 (6.3-8.2) g/dL Albumin 3.7 L (3.9-5) g/dL Albumin/Globulin Ratio 1.2 % Lipase 18 (13-60) units/L - Radiology Data Radiology results: report reviewed Patient Name: FARRAH DOMINGUEZ Gender: Female Date of : 1945 Referring Provider: JENNI HERNANDEZ Organization: [facility] Accession Number: [id number] Requested Date: November 22, 2020 01:32 Report Status: Final Requested Procedure: 1 Procedure Description: CT abdomen pelvis wo con Modality: CT Findings Reporting MD: Rocky Macedo Dictation Time: November 22, 2020 01:35 Machine Fancy Stitcher: Not available Analytics Intern Date: CT ABDOMEN AND PELVIS WITHOUT CONTRAST INDICATION: flank and right pelvic pain CONTRAST: Without IV COMPARISON: None available currently All CT scans at this location are performed using CT dose reduction for ALARA by means of automated exposure control. FINDINGS: Mild basilar atelectatic changes are noted. No pneumoperitoneum is seen. No free fluid is noted. No lymphadenopathy is seen. No urinary tract calculi or evidence of obstruction are seen. Gallbladder is not clearly visualized. No biliary dilatation is seen. Small probable cyst is seen in the left lobe of the liver. No other masses are seen. No focal inflammatory changes are noted. Small bowel distention with fluid with scattered air-fluid levels is seen but without true dilatation. Mild colonic diverticulosis is noted without evidence of diverticulitis. Appendix is not identified. IMPRESSION: Small bowel pattern suggests enteritis Signer Name: Rocky Macedo MD Signed: 11/22/2020 1:35 AM Workstation Name: [email or web address] - Medical Decision Making This patient presents with abdominal pain which appears to be secondary to enter itis. A CT scan was performed to evaluate for potential causes of the abdominal pain, however, neither the clinical exam nor the CT has identified an emergent etiology for the abdominal pain. Specifically, given the benign exam, the laboratory studies, and unremarkable CT, I have a very low suspicion for appendicitis, ischemic bowel, bowel perforation, or any other life threatening disease. I have discussed with the patient the level of uncertainty with undifferentiated abdominal pain and clearly explained the need to follow-up as noted on the discharge instructions, or return to the Emergency Department immediately if the pain worsens, develops fever, persistent and uncontrollable vomiting, or for any new symptoms or concerns. Critical care attestation.: If time is entered above; I have spent that time in minutes in the direct care of this critically ill patient, excluding procedure time. ED Disposition Clinical Impression: Abdominal pain, Enteritis Disposition: DC-01 TO HOME OR SELFCARE Is pt being admited?: No Does the pt Need Aspirin: No Condition: Stable Instructions: Abdominal Pain (ED), Abdominal Pain, Adult, [id number], Abdominal Pain, Adult, Colitis Additional Instructions: Be sure to follow-up with your doctor in 2 to 3 days to reevaluate your en teritis and abdominal pain Prescriptions: Ciprofloxacin HCl [Ciprofloxacin TAB] 500 mg PO Q12HR #20 tab metroNIDAZOLE [Flagyl] 500 mg PO Q12HR #20 tab Referrals: OLMAN NIETO MD [Primary Care Provider] - 3-5 Days
--- NOTE | 2020-11-22 02:40 | Cat Scan Report ---
CT ABDOMEN AND PELVIS WITHOUT CONTRAST INDICATION: flank and right pelvic pain CONTRAST: Without IV COMPARISON: None available currently All CT scans at this location are performed using CT dose reduction for ALARA by means of automated e xposure control. FINDINGS: Mild basilar atelectatic changes are noted. No pneumoperitoneum is seen. No free fluid is n oted. No lymphadenopathy is seen. No urinary tract calculi or evidence of obstruction are seen. Gallb ladder is not clearly visualized. No biliary dilatation is seen. Small probable cyst is seen in the l eft lobe of the liver. No other masses are seen. No focal inflammatory changes are noted. Small bowel distention with fluid with scattered air-fluid levels is seen but without true dilatation. Mild colo janina diverticulosis is noted without evidence of diverticulitis. Appendix is not identified. IMPRESSION: Small bowel pattern suggests enteritis Signer Name: Rocky Macedo MD Signed: 11/22/2020 2:35 AM Workstation Name: [id number]
== END 2020-11-22 05:02 | disposition home or self-care (01) ==
LOC: ED 16:26
DX: K52.9 Noninfective gastroenteritis and colitis, unspecified (principal); R10.84 Generalized abdominal pain; I10 Essential (primary) hypertension; J45.909 Unspecified asthma, uncomplicated; K21.9 Gastro-esophageal reflux disease without esophagitis; Z98.890 Other specified postprocedural states; Z90.710 Acquired absence of both cervix and uterus; Z79.899 Other long term (current) drug therapy; Z88.8 Allergy status to other drugs, medicaments and biological substances
CPT/HCPCS: 36415; 74176; 80053; 83690; 85027